=== PATIENT | male | born 1980 | race Caucasian/White ===

== ENCOUNTER 2016-12-08 08:02 | Emergency (ER) | payer MEDICAID ==
[2016-12-08 08:11] VITALS: BP 129/81
--- NOTE | 2016-12-08 09:55 | ED Physician Documentation ---
History of Present Illness - Stated complaint Stated Complaint: MED REFILL - Chief complaint Chief Complaint: General - History obtained from History obtained from: Patient - History of Present Illness Timing: Today - Additonal information Additional information: 36-year-old male with a history of PTSD has a prescription for some clonazepam half milligram 4 times per day. He has been taking this medication for some time and he is recently moved here from [place]. He has a refill due for his medication on the of this month and he plans to have his father male him his medication. He does not have primary care established here as yet. He does indicate that his moved here has been a positive move his living with his mother and things are much better here than in [place]. He does have some chronic pain in his neck shoulder and knee and he is not on pain management. 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 - Past Surgical History Past Surgical History: Yes HEENT: Tonsil/Adenoidectomy - Present Medications Home Medications: Ambulatory Orders Medication Instructions Recorded Confirmed Clonazepam 0.5 mg PO QID 12/08/16 12/08/16 Clonazepam 0.5 mg PO QID PRN #40 tablet 12/08/16 - Allergies Allergies/Adverse Reactions: Allergies Allergy/AdvReac Type Severity Reaction Status Date / Time ibuprofen Allergy Unknown Unknown Verified 12/08/16 08:13 acetaminophen Allergy Unknown Verified 12/08/16 08:12 [From Theraflu Cold-Sore Throat (PE)] Antifungal - Imidazole Allergy Unknown Verified 12/08/16 08:12 divalproex sodium Allergy Unknown Verified 12/08/16 08:12 [From Depakote] gabapentin [From Neurontin] Allergy Unknown Verified 12/08/16 08:12 oseltamivir [From Tamiflu] Allergy Unknown Verified 12/08/16 08:12 oxycodone Allergy Unknown Verified 12/08/16 08:12 Penicillins Allergy Unknown Verified 12/08/16 08:12 pheniramine Allergy Unknown Verified 12/08/16 08:12 [From Theraflu Cold-Sore Throat (PE)] phenylephrine Allergy Unknown Verified 12/08/16 08:12 [From Theraflu Cold-Sore Throat (PE)] - Social History Does the pt smoke?: No Smoking Status: Never smoker Does the pt drink ETOH?: No Does the pt have substance abuse?: No - POLST Patient has POLST: No PD ED PE NORMAL - Vitals Vital signs reviewed: Yes (hypertensive) - General General: No acute distress, Well developed/nourished - HEENT HEENT: Atraumatic, PERRL, Ears normal, Moist mucous membranes, Pharynx benign - Neck Neck: Supple, no meningeal sign - Cardiac Cardiac: RRR, No murmur - Respiratory Respiratory: No respiratory distress, Clear bilaterally - Abdomen Abdomen: Soft, Non tender - Derm Derm: Normal color, Warm and dry, No rash - Extremities Extremities: No deformity, No edema - Neuro Neuro: No motor deficit, No sensory deficit - Psych Psych: Normal mood, Normal affect Results - Vitals Vitals: Vital Signs - 24 hr 12/08/16 08:06 Temperature 36.8 C Heart Rate 68 Respiratory 18 Rate Blood Pressure 129/81 H O2 Saturation 99 Oxygen O2 Source Room air PD MEDICAL DECISION MAKING - ED course Complexity details: considered differential, d/w patient ED course: 36-year-old male needs medication refill for his PTSD. I will refer him to the [facility]. He will need physical therapy for his chronic pain and this was discussed with the patient at length. Departure - Departure Disposition: 01 Home, Self Care Clinical Impression: Medication refill, PTSD (post-traumatic stress disorder) Condition: Stable Instructions: PTSD Tx Therapy, PTSD Coping Follow-Up: [facility] [Provider Group] Prescriptions: Clonazepam 0.5 mg PO QID PRN #40 tablet PRN Reason: Anxiety
== END 2016-12-08 10:13 | disposition home or self-care (01) ==
LOC: ED 08:02
DX: F43.10 Post-traumatic stress disorder, unspecified (principal); Z76.0 Encounter for issue of repeat prescription
CPT/HCPCS: 99282; 99283

== ENCOUNTER 2017-01-21 19:43 | Emergency (ER) | payer MEDICAID ==
[2017-01-21 21:03] VITALS: BP 116/79
--- NOTE | 2017-01-21 21:15 | ED Physician Documentation ---
History of Present Illness - Stated complaint Stated Complaint: ANXIETY/MED REFILL - Chief complaint Chief Complaint: General - History obtained from History obtained from: Patient (pt is new to the area had an appointment with a new primary care provider on Feb 08. he has anxiety and takes Clonazepam 0.5 mg Po TID for his anxiety. pt states that he ran out of his medications and has other medications in a unlabel bottle with pills that he staes he ws told were Clonazepam by his father. he states that those pills did not help him today.) - History of Present Illness Timing: Today Review of Systems Constitutional: denies: Fever, Chills Throat: denies: Sore throat Cardiac: denies: Chest pain / pressure, Palpitations, Calf pain Respiratory: denies: Dyspnea, Cough, Wheezing GI: denies: Abdominal Pain, Nausea, Vomiting, Constipation, Diarrhea : denies: Dysuria Skin: denies: Rash, Lesions Musculoskeletal: denies: Joint swelling Neurologic: denies: Headache, LOC Psychiatric: reports: Anxiety. denies: Suicidal PD PAST MEDICAL HISTORY - Past Medical History Past Medical History: Yes Psych: Anxiety, Panic attacks, Post traumatic stress disorder - Past Surgical History Past Surgical History: Yes HEENT: Tonsil/Adenoidectomy - Present Medications Home Medications: Ambulatory Orders Medication Instructions Recorded Confirmed clonazePAM [Clonazepam] 0.5 mg PO TID 12/08/16 01/21/17 clonazePAM [Clonazepam] 0.5 mg PO TID #54 tablet 01/21/17 - Allergies Allergies/Adverse Reactions: Allergies Allergy/AdvReac Type Severity Reaction Status Date / Time ibuprofen Allergy Unknown Unknown Verified 01/21/17 19:49 acetaminophen Allergy Unknown Verified 01/21/17 19:49 [From Theraflu Cold-Sore Throat (PE)] Antifungal - Imidazole Allergy Unknown Verified 01/21/17 19:49 divalproex sodium Allergy Unknown Verified 01/21/17 19:49 [From Depakote] gabapentin [From Neurontin] Allergy Unknown Verified 01/21/17 19:49 oseltamivir [From Tamiflu] Allergy Unknown Verified 01/21/17 19:49 oxycodone Allergy Unknown Verified 01/21/17 19:49 Penicillins Allergy Unknown Verified 01/21/17 19:49 pheniramine Allergy Unknown Verified 01/21/17 19:49 [From Theraflu Cold-Sore Throat (PE)] phenylephrine Allergy Unknown Verified 01/21/17 19:49 [From Theraflu Cold-Sore Throat (PE)] - Social History Does the pt smoke?: No Smoking Status: Never smoker Does the pt drink ETOH?: No Does the pt have substance abuse?: No - POLST Patient has POLST: No PD ED PE NORMAL - Vitals Vital signs reviewed: Yes - General General: Alert and oriented X 3, Well developed/nourished - Cardiac Cardiac: RRR, No murmur - Respiratory Respiratory: No respiratory distress, Clear bilaterally - Abdomen Abdomen: Soft, Non tender - Derm Derm: Normal color, No rash - Extremities Extremities: Normal ROM s pain - Neuro Neuro: Alert and oriented X 3, No motor deficit, No sensory deficit, Normal speech Eye Opening: Spontaneous Motor: Obeys Commands Verbal: Oriented GCS Score: 15 - Psych Psych: Normal mood, Normal affect Results - Vitals Vitals: Vital Signs - 24 hr 01/21/17 01/21/17 19:45 21:03 Temperature 36.8 C Heart Rate 56 L 56 L Respiratory 16 16 Rate Blood Pressure 129/86 H 116/79 O2 Saturation 100 100 Oxygen O2 Source Room air PD MEDICAL DECISION MAKING - ED course Complexity details: d/w patient ED course: I looked up the pills that the pt had and they are 0.5 mg Clonazepam pills. The pt states that he is concerned that the pills are "not good". the pt asked if I would take his pills and give him another Rx. I received 59 of the pills from him and disposed of them in the medication container with a witness (FELICIA barriga [employer]) and will refill his medication until he can get into his PCM. Departure - Departure Disposition: 01 Home, Self Care Clinical Impression: Anxiety Condition: Good Instructions: ED Stress React Follow-Up: primary,care provider [Other] Prescriptions: clonazePAM [Clonazepam] 0.5 mg PO TID #54 tablet Comments: Take your medications as instructed. Keep your appointment that you have with your primary care provider.
[2017-01-21] MEDS ORDERED: LORazepam 0.5 MG TABLET PO STA (21:30)
[2017-01-21] MEDS ORDERED: LORazepam 0.5 MG TABLET ONE (21:37)
== END 2017-01-21 21:33 | disposition home or self-care (01) ==
LOC: ED 19:43
DX: F41.9 Anxiety disorder, unspecified (principal)
CPT/HCPCS: 99283; A9270

== ENCOUNTER 2017-03-07 11:07 | Emergency (ER) | payer MEDICAID ==
[2017-03-07 11:24] VITALS: BP 114/70
--- NOTE | 2017-03-07 13:28 | ED Physician Documentation ---
History of Present Illness - Stated complaint Stated Complaint: MED REFILL - Chief complaint Chief Complaint: General - History obtained from History obtained from: Patient - History of Present Illness Timing: Today Pain level max: 0 Pain level now: 0 Improved by: nothing Worsened by: nothing - Additonal information Additional information: Patient is a 36-year-old male who presents to the emergency department after running out of his clonazepam. Has a new PCP appointment on April 12 with [facility]. Has not had any seizures. No fevers. No SI. Has been on this medication for years. Review of Systems Skin: denies: Rash Neurologic: denies: Seizure, Confused, Altered mental status PD PAST MEDICAL HISTORY - Past Medical History Past Medical History: Yes Psych: Anxiety, Panic attacks, Post traumatic stress disorder Musculoskeletal: Other Other Past Medical History: AVM, - Past Surgical History Past Surgical History: Yes HEENT: Tonsil/Adenoidectomy - Present Medications Home Medications: Ambulatory Orders Medication Instructions Recorded Confirmed clonazePAM [Clonazepam] 0.5 mg PO TID PRN #90 tablet 02/09/17 03/07/17 clonazePAM [Clonazepam] 0.5 mg PO TID PRN #90 tablet 03/07/17 - Allergies Allergies/Adverse Reactions: Allergies Allergy/AdvReac Type Severity Reaction Status Date / Time ibuprofen Allergy Unknown Unknown Verified 03/07/17 11:25 acetaminophen Allergy Unknown Verified 03/07/17 11:25 [From Theraflu Cold-Sore Throat (PE)] Antifungal - Imidazole Allergy Unknown Verified 03/07/17 11:25 divalproex sodium Allergy Unknown Verified 03/07/17 11:25 [From Depakote] gabapentin [From Neurontin] Allergy Unknown Verified 03/07/17 11:25 oseltamivir [From Tamiflu] Allergy Unknown Verified 03/07/17 11:25 oxycodone Allergy Unknown Verified 03/07/17 11:25 Penicillins Allergy Unknown Verified 03/07/17 11:25 pheniramine Allergy Unknown Verified 03/07/17 11:25 [From Theraflu Cold-Sore Throat (PE)] phenylephrine Allergy Unknown Verified 03/07/17 11:25 [From Theraflu Cold-Sore Throat (PE)] - Social History Does the pt smoke?: No Smoking Status: Never smoker Does the pt drink ETOH?: No Does the pt have substance abuse?: No - Immunizations Immunizations are current?: No - POLST Patient has POLST: No PD ED PE NORMAL - Vitals Vital signs reviewed: Yes - General General: Alert and oriented X 3, No acute distress - HEENT HEENT: Moist mucous membranes - Cardiac Cardiac: RRR - Respiratory Respiratory: No respiratory distress, Clear bilaterally - Abdomen Abdomen: Soft, Non tender, Non distended - Derm Derm: Warm and dry - Neuro Neuro: Alert and oriented X 3 - Psych Psych: Normal mood, Normal affect Results - Vitals Vitals: Vital Signs - 24 hr 03/07/17 11:20 Temperature 37.1 C Heart Rate 75 Respiratory 18 Rate Blood Pressure 114/70 O2 Saturation 98 Oxygen O2 Source Room air PD MEDICAL DECISION MAKING - ED course Complexity details: reviewed old records, considered differential, d/w patient ED course: Patient is a 36-year-old male who presents to the emergency department after running out of his clonazepam. Will refill this for him and told that he needs to make it last until his appointment on April 12. No suicidal or homicidal ideations. Patient counseled regarding signs and symptoms for which I believe and urgent re-evaluation would be necessary. Patient with good understanding of and agreement to plan and is comfortable going home at this time This document was made in part using voice recognition software. While efforts are made to proofread this document, sound alike and grammatical errors may occur. Departure - Departure Disposition: 01 Home, Self Care Clinical Impression: Medication refill, Anxiety Condition: Good Instructions: ED Panic Attack Follow-Up: your,doctor as scheduled. [Other] Prescriptions: clonazePAM [Clonazepam] 0.5 mg PO TID PRN #90 tablet PRN Reason: Anxiety Comments: Follow up with your doctor for further medication refills.
== END 2017-03-07 13:42 | disposition home or self-care (01) ==
LOC: ED 11:07
DX: F41.9 Anxiety disorder, unspecified (principal); Z76.0 Encounter for issue of repeat prescription
CPT/HCPCS: 99283

== ENCOUNTER 2017-03-11 16:35 | Emergency (ER) | payer MEDICAID ==
[2017-03-11 18:16] VITALS: BP 128/94
--- NOTE | 2017-03-11 18:20 | ED Physician Documentation ---
History of Present Illness - Stated complaint Stated Complaint: ALLERGIC REACTION/FAST HR/THROAT SWELLING - Chief complaint Chief Complaint: Allergic Rx - History obtained from History obtained from: Patient, Family - History of Present Illness Timing: Today Pain level max: 0 Pain level now: 0 Improved by: nothing Worsened by: nothing - Additonal information Additional information: Patient is a 36-year-old male who has a history of severe anxiety. Received a flu shot approximately 3 hours ago. About an hour after the flu shot was administered, he went to [facility] and states that he felt like he could not swallow as well as normal. Began to feel panicked. His mother stated that he looked slightly pale. No rash. No itching. He is feeling better now. Review of Systems Constitutional: denies: Fever Nose: denies: Rhinorrhea / runny nose, Congestion Throat: denies: Sore throat Cardiac: denies: Chest pain / pressure Respiratory: denies: Cough, Wheezing Skin: denies: Rash PD PAST MEDICAL HISTORY - Past Medical History Past Medical History: Yes Psych: Anxiety, Panic attacks, Post traumatic stress disorder Musculoskeletal: Other - Past Surgical History Past Surgical History: Yes HEENT: Tonsil/Adenoidectomy - Present Medications Home Medications: Ambulatory Orders Medication Instructions Recorded Confirmed clonazePAM [Clonazepam] 0.5 mg PO TID PRN #90 tablet 02/09/17 03/11/17 clonazePAM [Clonazepam] 0.5 mg PO TID PRN #90 tablet 03/07/17 03/11/17 - Allergies Allergies/Adverse Reactions: Allergies Allergy/AdvReac Type Severity Reaction Status Date / Time ibuprofen Allergy Unknown Unknown Verified 03/07/17 11:25 acetaminophen Allergy Unknown Verified 03/07/17 11:25 [From Theraflu Cold-Sore Throat (PE)] Antifungal - Imidazole Allergy Unknown Verified 03/07/17 11:25 divalproex sodium Allergy Unknown Verified 03/07/17 11:25 [From Depakote] gabapentin [From Neurontin] Allergy Unknown Verified 03/07/17 11:25 oseltamivir [From Tamiflu] Allergy Unknown Verified 03/07/17 11:25 oxycodone Allergy Unknown Verified 03/07/17 11:25 Penicillins Allergy Unknown Verified 03/07/17 11:25 pheniramine Allergy Unknown Verified 03/07/17 11:25 [From Theraflu Cold-Sore Throat (PE)] phenylephrine Allergy Unknown Verified 03/07/17 11:25 [From Theraflu Cold-Sore Throat (PE)] - Social History Does the pt smoke?: No Smoking Status: Never smoker Does the pt drink ETOH?: No Does the pt have substance abuse?: Yes Substance Use and Type: Marijuana - Immunizations Immunizations are current?: No - POLST Patient has POLST: No PD ED PE NORMAL - Vitals Vital signs reviewed: Yes - General General: Alert and oriented X 3, No acute distress, Well developed/nourished - HEENT HEENT: PERRL, Ears normal, Moist mucous membranes, Pharynx benign, Other (No stridor or wheezing) - Neck Neck: Supple, no meningeal sign - Cardiac Cardiac: RRR, Strong equal pulses - Respiratory Respiratory: No respiratory distress, Clear bilaterally - Abdomen Abdomen: Soft, Non tender, Non distended - Derm Derm: Warm and dry, No rash - Neuro Neuro: Alert and oriented X 3 - Psych Psych: Normal mood, Normal affect Results - Vitals Vitals: Vital Signs - 24 hr 03/11/17 03/11/17 16:53 18:15 Temperature 37.1 C 36.7 C Heart Rate 75 72 Respiratory 20 16 Rate Blood Pressure 120/69 128/94 H O2 Saturation 98 94 Oxygen O2 Source Room air PD MEDICAL DECISION MAKING - ED course Complexity details: re-evaluated patient, considered differential, d/w patient, d/w family ED course: Patient is a 36-year-old male who presents to the emergency department with a possible allergic reaction, but more likely a panic attack. He is well- appearing, nontoxic. Afebrile. No stridor. No wheezing. No urticaria. Normal oropharyngeal exam. No trismus. Uvula midline. Symptoms resolved in the emergency department. We will continue supportive care and follow-up with his doctor. Patient counseled regarding signs and symptoms for which I believe and urgent re-evaluation would be necessary. Patient with good understanding of and agreement to plan and is comfortable going home at this time This document was made in part using voice recognition software. While efforts are made to proofread this document, sound alike and grammatical errors may occur. Departure - Departure Disposition: 01 Home, Self Care Clinical Impression: Allergic reaction Qualifiers: Encounter type: initial encounter Qualified Code(s): T78.40XA - Allergy, unspecified, initial encounter Condition: Good Instructions: ED Allergic Reaction General Other Follow-Up: your,doctor in 1 week [Other] Comments: Return if you worsen. This should continue to improve over the next few hours. Discharge Date/Time: 03/11/17 18:55
== END 2017-03-11 18:55 | disposition home or self-care (01) ==
LOC: ED 16:35
DX: T78.40XA Allergy, unspecified, initial encounter (principal); X58.XXXA Exposure to other specified factors, initial encounter
CPT/HCPCS: 99283

== ENCOUNTER 2017-04-08 09:29 | Emergency (ER) | payer MEDICAID ==
[2017-04-08 10:07] VITALS: BP 107/63
--- NOTE | 2017-04-08 11:23 | ED Physician Documentation ---
History of Present Illness - Stated complaint Stated Complaint: MED REFILL - Chief complaint Chief Complaint: General - History obtained from History obtained from: Patient, Family (Mother) - Additonal information Additional information: The patient is a 36-year-old male with a history of anxiety disorder and panic attacks. He normally takes clonazepam 0.5 mg 3 times daily, and presents for refill of his medication because he has only one tablet left. He moved here 4 months ago and has had difficulty establishing care with a primary physician. He currently has an appointment scheduled at [facility] on April 12, next week. Review of his medical records reveals that he was seen here one month ago and was prescribed a 1 month supply of his medication. Review of Systems Ten Systems: 10 systems reviewed and negative Constitutional: denies: Fever Nose: denies: Congestion Respiratory: denies: Cough GI: denies: Nausea, Vomiting Psychiatric: reports: Anxiety (controlled with clonazepam) PD PAST MEDICAL HISTORY - Past Medical History Cardiovascular: None Respiratory: None Neuro: None Endocrine/Autoimmune: None Psych: Anxiety, Panic attacks, Post traumatic stress disorder Musculoskeletal: Other - Past Surgical History Past Surgical History: Yes HEENT: Tonsil/Adenoidectomy - Present Medications Home Medications: Ambulatory Orders Medication Instructions Recorded Confirmed clonazePAM [Clonazepam] 0.5 mg PO TID PRN #90 tablet 03/07/17 03/11/17 clonazePAM [Clonazepam] 0.5 mg PO TID #20 tablet 04/08/17 - Allergies Allergies/Adverse Reactions: Allergies Allergy/AdvReac Type Severity Reaction Status Date / Time ibuprofen Allergy Unknown Unknown Verified 03/07/17 11:25 acetaminophen Allergy Unknown Verified 03/07/17 11:25 [From Theraflu Cold-Sore Throat (PE)] Antifungal - Imidazole Allergy Unknown Verified 03/07/17 11:25 divalproex sodium Allergy Unknown Verified 03/07/17 11:25 [From Depakote] gabapentin [From Neurontin] Allergy Unknown Verified 03/07/17 11:25 hydrocodone Allergy Unknown Verified 04/08/17 10:08 oseltamivir [From Tamiflu] Allergy Unknown Verified 03/07/17 11:25 oxycodone Allergy Unknown Verified 03/07/17 11:25 Penicillins Allergy Unknown Verified 03/07/17 11:25 pheniramine Allergy Unknown Verified 03/07/17 11:25 [From Theraflu Cold-Sore Throat (PE)] phenylephrine Allergy Unknown Verified 03/07/17 11:25 [From Theraflu Cold-Sore Throat (PE)] anelgesics Allergy Anxiety Uncoded 04/08/17 10:08 - Social History Does the pt smoke?: No Smoking Status: Never smoker Does the pt drink ETOH?: No Does the pt have substance abuse?: Yes - Immunizations Immunizations are current?: No - POLST Patient has POLST: No PD ED PE NORMAL - Vitals Vital signs reviewed: Yes (normal) - General General: Alert and oriented X 3, Well developed/nourished - HEENT HEENT: Atraumatic, EOMI - Cardiac Cardiac: RRR - Respiratory Respiratory: No respiratory distress - Derm Derm: No rash - Neuro Neuro: Alert and oriented X 3, No motor deficit, No sensory deficit, Normal speech - Psych Psych: Normal mood, Normal affect Results - Vitals Vitals: Oxygen O2 Source Room air PD MEDICAL DECISION MAKING - ED course Complexity details: reviewed old records, considered differential, d/w patient, d/w family ED course: The patient has a history of anxiety disorder with panic attacks, and presents for refill of his medication. He is currently not having symptoms. He has an appointment scheduled in primary care clinic next week. I will prescribe him a one-week supply of clonazepam. I discussed with him the importance of outpatient follow-up, as well as potentially worrisome signs or symptoms that should prompt reevaluation in the emergency department. Departure - Departure Disposition: 01 Home, Self Care Clinical Impression: Medication refill, Anxiety Condition: Stable Instructions: ED Stress React Follow-Up: [facility] [Provider Group] Prescriptions: clonazePAM [Clonazepam] 0.5 mg PO TID #20 tablet Comments: Follow up at [facility] next week as scheduled. Return to the emergency department if you develop increasing anxiety disorder, or otherwise worsening symptoms. Discharge Date/Time: 04/08/17 11:26
== END 2017-04-08 11:26 | disposition home or self-care (01) ==
LOC: ED 09:29
DX: Z76.0 Encounter for issue of repeat prescription (principal); F41.9 Anxiety disorder, unspecified
CPT/HCPCS: 99283

== ENCOUNTER 2017-04-14 12:47 | Emergency (ER) | payer MEDICAID ==
--- NOTE | 2017-04-14 13:52 | ED Physician Documentation ---
PD HPI MHE - Stated complaint Stated Complaint: MED REFILL - Chief complaint Chief Complaint: General - History obtained from History obtained from: Patient - History of Present Illness Primary symptom: Anxiety. No: Suicidal ideation Timing - onset: Other (chronic anxiety and is about out of meds. Had appt with [facility] couple days ago and they told him they would not give Rx for the Clonazepam regularly. He was not interested in other meds instead as he has tried many in the past without improvement and the Clonazepam works the best for him.) Contributing factors: No: Substance abuse - ETOH, Substance abuse - drugs Recently seen: Clinic (2 days ago), Emergency Dept (has been getting refills for his Clonazepam for about 4 months through ER as he had long wait for appts to PCP clinics. Finally had appt and they will not give him the Rx he is asking for. Here for refill again. Prior notes clearly state the ER refills were intended to act as a bridge until he could get to PCP and then was to continue through primary care.) Review of Systems Constitutional: denies: Fever, Chills Nose: denies: Rhinorrhea / runny nose, Congestion Throat: denies: Sore throat Respiratory: denies: Cough GI: denies: Nausea, Vomiting, Diarrhea Psychiatric: reports: Anxiety, Insomnia. denies: Depressed, Suicidal PD PAST MEDICAL HISTORY - Past Medical History Cardiovascular: None Respiratory: None Neuro: None Endocrine/Autoimmune: None Psych: Anxiety, Panic attacks, Post traumatic stress disorder Musculoskeletal: Other - Past Surgical History Past Surgical History: Yes HEENT: Tonsil/Adenoidectomy - Present Medications Home Medications: Ambulatory Orders Medication Instructions Recorded Confirmed clonazePAM [Clonazepam] 0.5 mg PO TID #20 tablet 04/08/17 clonazePAM [Clonazepam] 0.5 mg PO TID PRN #90 tablet 04/14/17 - Allergies Allergies/Adverse Reactions: Allergies Allergy/AdvReac Type Severity Reaction Status Date / Time ibuprofen Allergy Unknown Unknown Verified 04/14/17 13:05 acetaminophen Allergy Unknown Verified 04/14/17 13:05 [From Theraflu Cold-Sore Throat (PE)] Antifungal - Imidazole Allergy Unknown Verified 04/14/17 13:05 divalproex sodium Allergy Unknown Verified 04/14/17 13:05 [From Depakote] gabapentin [From Neurontin] Allergy Unknown Verified 04/14/17 13:05 hydrocodone Allergy Unknown Verified 04/14/17 13:05 oseltamivir [From Tamiflu] Allergy Unknown Verified 04/14/17 13:05 oxycodone Allergy Unknown Verified 04/14/17 13:05 Penicillins Allergy Unknown Verified 04/14/17 13:05 pheniramine Allergy Unknown Verified 04/14/17 13:05 [From Theraflu Cold-Sore Throat (PE)] phenylephrine Allergy Unknown Verified 04/14/17 13:05 [From Theraflu Cold-Sore Throat (PE)] anelgesics Allergy Anxiety Uncoded 04/14/17 13:05 - Social History Does the pt smoke?: No Smoking Status: Never smoker Does the pt drink ETOH?: No Does the pt have substance abuse?: Yes - Immunizations Immunizations are current?: No - POLST Patient has POLST: No PD ED PE NORMAL - Vitals Vital signs reviewed: Yes - General General: Alert and oriented X 3, No acute distress, Well developed/nourished - Cardiac Cardiac: RRR, No murmur - Respiratory Respiratory: Clear bilaterally - Derm Derm: Normal color, Warm and dry - Neuro Neuro: Alert and oriented X 3, No motor deficit, Normal speech Results - Vitals Vitals: Oxygen O2 Source Room air PD MEDICAL DECISION MAKING - ED course Complexity details: considered differential (he saw [facility] and they do not want to Rx the Clonazepam regularly. He is resistant to other meds for his anxiety as has tried many in the past without imrovement (some were just for a few days and made him feel more anxious so stopped them). I suggested he try psychology services for Rx of his meds and gave referral sheet for [facility] and [facility]. However, if he is not finding PCP Clinic for giving his Rx, and I reinforced with him that the ER scripts were just to bridge until he got to PCP and not to be ongoing refills (has been about 4 months already), then he needs to confront the idea of tapering off and being without benzos. I listed several meds to try for anxiety otherwise, and gave Rx for Trazadone as it sounded like one he had not tried, but then he remembered it had made him sleepy but did not help anxiety so does not want to try that. He is painting himself into a corner of having to be off all Rx meds then. I gave Rx for him, with explicit instructions to be tapering dose and to consider this the beginning of a tapering off over the next month or two. He is going to try appt with [facility].), d/w patient Departure - Departure Disposition: 01 Home, Self Care Clinical Impression: Medication refill, Anxiety Condition: Stable Record reviewed to determine appropriate education?: Yes Instructions: Anxiety Disorder Tx Meds Follow-Up: [facility] [Provider Group] Prescriptions: clonazePAM [Clonazepam] 0.5 mg PO TID PRN #90 tablet PRN Reason: Anxiety Comments: Drink lots of fluids. You could try the [facility] and see if they would give you an appointment. You may try through the psychological services to see if they would prescribe you medications for the anxiety as they often will do those types of medicines, more so than the primary care clinics. A couple in the [place] are [facility] and [facility], see the separate handout for their phone numbers. I hear that this medication has worked the best for you and other medications have not but you still need to be able to find a provider who will prescribe you the clonazepam regularly. We won't continue to do it through the ER (we did as a bridge until getting a primary care but we won't continue refills if a primary care will not be continuing it. You may need to consider tapering down and off of it and substituting other medications. Try tapering down to clonazepam twice daily for the next 2-3 weeks and see if you are able to adjust to that and then taper down to half a dose twice a day from there. You will need to taper somewhat slowly on the clonazepam over several weeks. I understand you have had side effects to many other medications used for anxiety some not sure what else to try to prescribe you. See if you are able to see 1 of the psychologists for other ideas. Discharge Date/Time: 04/14/17 14:11
[2017-04-14 14:08] VITALS: BP 121/72
== END 2017-04-14 14:11 | disposition home or self-care (01) ==
LOC: ED 12:47
DX: Z76.0 Encounter for issue of repeat prescription (principal); F41.9 Anxiety disorder, unspecified
CPT/HCPCS: 99283

== ENCOUNTER 2017-04-24 12:15 | Emergency (ER) | payer MEDICAID ==
[2017-04-24] MEDS ORDERED: TETANUS/DIPHTHERIA/PERTUSSIS 0.5 ML SYRINGE IM ONE (13:33)
--- NOTE | 2017-04-24 13:38 | ED Physician Documentation ---
PD HPI LOWER EXT INJURY - Stated complaint Stated Complaint: DOG BITE - Chief complaint Chief Complaint: Ext Problem - History obtained from History obtained from: Patient - History of Present Illness PD HPI LOW EXT INJURY LOCATION: Right, Foot (Bitten by dog last night to the right foot with pain there but declines pain medication. Tetanus is not up-to- date.) Review of Systems Constitutional: denies: Fever, Chills Throat: reports: Reviewed and negative Cardiac: reports: Reviewed and negative Respiratory: reports: Reviewed and negative PD PAST MEDICAL HISTORY - Past Medical History Past Medical History: Yes Cardiovascular: None Respiratory: None Neuro: None Endocrine/Autoimmune: None Psych: Anxiety, Panic attacks, Post traumatic stress disorder Musculoskeletal: Other - Past Surgical History Past Surgical History: Yes HEENT: Tonsil/Adenoidectomy - Present Medications Home Medications: Ambulatory Orders Medication Instructions Recorded Confirmed clonazePAM [Clonazepam] 0.5 mg PO TID #20 tablet 04/08/17 - Allergies Allergies/Adverse Reactions: Allergies Allergy/AdvReac Type Severity Reaction Status Date / Time ibuprofen Allergy Unknown Unknown Verified 04/24/17 12:36 acetaminophen Allergy Unknown Verified 04/24/17 12:36 [From Theraflu Cold-Sore Throat (PE)] Antifungal - Imidazole Allergy Unknown Verified 04/24/17 12:36 divalproex sodium Allergy Unknown Verified 04/24/17 12:36 [From Depakote] gabapentin [From Neurontin] Allergy Unknown Verified 04/24/17 12:36 hydrocodone Allergy Unknown Verified 04/24/17 12:36 oseltamivir [From Tamiflu] Allergy Unknown Verified 04/24/17 12:36 oxycodone Allergy Unknown Verified 04/24/17 12:36 Penicillins Allergy Unknown Verified 04/24/17 12:36 pheniramine Allergy Unknown Verified 04/24/17 12:36 [From Theraflu Cold-Sore Throat (PE)] phenylephrine Allergy Unknown Verified 04/24/17 12:36 [From Theraflu Cold-Sore Throat (PE)] anelgesics Allergy Anxiety Uncoded 04/24/17 12:36 - Social History Does the pt smoke?: No Smoking Status: Never smoker Does the pt drink ETOH?: No Does the pt have substance abuse?: Yes - Immunizations Immunizations are current?: No - POLST Patient has POLST: No PD ED PE NORMAL - Vitals Vital signs reviewed: Yes - General General: Alert and oriented X 3, No acute distress - Extremities Extremities: Other (V shallow punture near top of R 4th MT, not though skin much mild TTP) - Neuro Neuro: Alert and oriented X 3, Normal speech Results - Vitals Vitals: Vital Signs - 24 hr 04/24/17 04/24/17 12:33 14:15 Temperature 37.7 C H 37.5 C Heart Rate 74 92 Respiratory 16 16 Rate Blood Pressure 122/81 H 151/86 H O2 Saturation 98 98 Oxygen O2 Source Room air - Rads (name of study) 3v R foot Radiology: EMP read contemporaneously (Normal) Departure - Departure Disposition: 01 Home, Self Care Clinical Impression: Dog bite of extremity Condition: Good Record reviewed to determine appropriate education?: Yes Instructions: ED Bite Dog Comments: Come back for any signs of infection which would include: Redness, swelling, drainage, increased pain, or fevers. Your blood pressure was elevated today on check into the emergency department. This does not mean that you have hypertension, it is a common phenomenon to come to the emergency department and have elevated blood pressure. I recommend that you see your primary care physician within the week to have it rechecked when you are feeling better.
--- NOTE | 2017-04-24 14:09 | XRAY Report ---
EXAM: RIGHT FOOT RADIOGRAPHY EXAM DATE: 04/24/2017 01:45 PM. CLINICAL HISTORY: Foot inj, prox 4th MT area. COMPARISON: None. TECHNIQUE: 3 views. FINDINGS: Bones: Accessory navicular. No fracture or bone lesion. Joints: Normal. No subluxations. Soft Tissues: Normal. No soft tissue swelling. IMPRESSION: No acute osseous abnormality. [facility] Referring Provider Line: [phone] SITE ID: [id number]
[2017-04-24 14:16] VITALS: BP 151/86
== END 2017-04-24 14:24 | disposition home or self-care (01) ==
LOC: ED 12:15
DX: S91.351A Open bite, right foot, initial encounter (principal); W54.0XXA Bitten by dog, initial encounter; R03.0 Elevated blood-pressure reading, without diagnosis of hypertension; Z23 Encounter for immunization
CPT/HCPCS: 90471; 99282; 99283

== ENCOUNTER 2017-06-18 17:51 | Emergency (ER) | payer MEDICAID ==
[2017-06-18 18:00] VITALS: BP 139/74
--- NOTE | 2017-06-18 18:26 | ED Physician Documentation ---
History of Present Illness - Stated complaint Stated Complaint: MED REFILL - Chief complaint Chief Complaint: General - History obtained from History obtained from: Patient, Family (mother) - History of Present Illness Timing: Today Pain level max: 0 Pain level now: 0 Improved by: nothing Worsened by: nothing - Additonal information Additional information: out of clonazepam. No meds until tuesday. Requesting medications until then. Denies SI/ HI Review of Systems Constitutional: denies: Fever, Chills Nose: denies: Rhinorrhea / runny nose, Congestion Respiratory: denies: Cough GI: denies: Vomiting Psychiatric: reports: Anxiety. denies: Suicidal, Homicidal, Hallucinations PD PAST MEDICAL HISTORY - Past Medical History Past Medical History: Yes Cardiovascular: None Respiratory: None Neuro: None Endocrine/Autoimmune: None GI: None : None HEENT: None Psych: Anxiety, Panic attacks, Post traumatic stress disorder Musculoskeletal: None, Other Derm: None - Past Surgical History Past Surgical History: Yes HEENT: Tonsil/Adenoidectomy - Present Medications Home Medications: Ambulatory Orders Medication Instructions Recorded Confirmed clonazePAM [Clonazepam] 0.5 mg PO TID #20 tablet 04/08/17 Prazosin [Minipress] 1 cap PO DAILY 06/18/17 06/18/17 clonazePAM [Clonazepam] 0.5 mg PO TID #7 tablet 06/18/17 - Allergies Allergies/Adverse Reactions: Allergies Allergy/AdvReac Type Severity Reaction Status Date / Time ibuprofen Allergy Unknown Unknown Verified 06/18/17 18:01 acetaminophen Allergy Unknown Verified 06/18/17 18:01 [From Theraflu Cold-Sore Throat (PE)] Antifungal - Imidazole Allergy Unknown Verified 06/18/17 18:01 divalproex sodium Allergy Unknown Verified 06/18/17 18:01 [From Depakote] gabapentin [From Neurontin] Allergy Unknown Verified 06/18/17 18:01 hydrocodone Allergy Unknown Verified 06/18/17 18:01 oseltamivir [From Tamiflu] Allergy Unknown Verified 06/18/17 18:01 oxycodone Allergy Unknown Verified 06/18/17 18:01 Penicillins Allergy Unknown Verified 06/18/17 18:01 pheniramine Allergy Unknown Verified 06/18/17 18:01 [From Theraflu Cold-Sore Throat (PE)] phenylephrine Allergy Unknown Verified 06/18/17 18:01 [From Theraflu Cold-Sore Throat (PE)] anelgesics Allergy Anxiety Uncoded 04/24/17 12:36 - Social History Does the pt smoke?: No Smoking Status: Never smoker Does the pt drink ETOH?: No Does the pt have substance abuse?: No - Immunizations Immunizations are current?: Yes - POLST Patient has POLST: No PD ED PE NORMAL - Vitals Vital signs reviewed: Yes - General General: Alert and oriented X 3, No acute distress - HEENT HEENT: Moist mucous membranes - Neck Neck: Supple, no meningeal sign - Cardiac Cardiac: RRR, Strong equal pulses - Respiratory Respiratory: No respiratory distress, Clear bilaterally - Abdomen Abdomen: Soft, Non tender, Non distended - Derm Derm: Warm and dry - Neuro Neuro: Alert and oriented X 3 - Psych Psych: Normal mood, Normal affect Results - Vitals Vitals: Vital Signs - 24 hr 06/18/17 17:55 Temperature 37 C Heart Rate 82 Respiratory 14 Rate Blood Pressure 139/74 H O2 Saturation 98 Oxygen O2 Source Room air PD MEDICAL DECISION MAKING - ED course Complexity details: reviewed results, re-evaluated patient, considered differential, d/w patient ED course: Patient was supposed to have a refill of his medications 2 days ago, but because of pharmacy mixup, the prescription is unable to be available until Tuesday. Will prescribe 7 pills for home and have him follow-up with his doctor. Patient counseled regarding signs and symptoms for which I believe and urgent re-evaluation would be necessary. Patient with good understanding of and agreement to plan and is comfortable going home at this time This document was made in part using voice recognition software. While efforts are made to proofread this document, sound alike and grammatical errors may occur. Departure - Departure Disposition: Home, Self Care Clinical Impression: Medication refill, Anxiety Condition: Good Instructions: ED Stress React Follow-Up: GEORGIANA EASON ARNP [Primary Care Provider] - Within 3 Days Prescriptions: clonazePAM [Clonazepam] 0.5 mg PO TID #7 tablet Comments: Follow up with your doctor for further medication refills. Discharge Date/Time: 06/18/17 18:32
== END 2017-06-18 18:32 | disposition home or self-care (01) ==
LOC: ED 17:51
DX: F41.9 Anxiety disorder, unspecified (principal)
CPT/HCPCS: 99283

== ENCOUNTER 2017-07-19 08:00 | Outpatient (CLI) | payer MEDICAID ==
[2017-07-19 18:58] LABS: BILIRUBIN,URINE NEGATIVE (NEGATIVE); GLUCOSE, URINE (UA) NEGATIVE (NEGATIVE); KETONES,URINE (UA) NEGATIVE (NEGATIVE); LEUKOCYTE ESTERASE, URINE NEGATIVE (NEGATIVE); NITRITE,URINE NEGATIVE (NEGATIVE); OCCULT BLOOD,URINE NEGATIVE (NEGATIVE); PROTEIN,URINE NEGATIVE (NEGATIVE); UROBILINOGEN,URINE 0.2 (NORMAL) E.U./dL (NORMAL)
[2017-07-19 19:18] LABS: CLARITY,URINE CLEAR (CLEAR)
[2017-07-19 19:20] LABS: BACTERIA,URINE None Seen /HPF (None Seen); RBC,URINE 0-5 /HPF (0-5); SQUAMOUS EPITHELIAL CELL,UR NONE SEEN (<= Few)
== END 2017-07-19 08:01 | disposition home or self-care (01) ==
LOC: LAB.WCP 08:00
PROVIDERS: ATTEND Family Medicine
DX: N50.812 Left testicular pain (principal)
CPT/HCPCS: 81001; 87086

== ENCOUNTER 2017-07-19 16:46 | Emergency (ER) | payer MEDICAID ==
[2017-07-19 16:58] VITALS: BP 132/73
--- NOTE | 2017-07-19 18:15 | ED Physician Documentation ---
PD HPI ALTERED MENTAL STATUS - Stated complaint Stated Complaint: MED REACTION - Chief complaint Chief Complaint: Allergic Rx - History obtained from History obtained from: Patient - History of Present Illness Timing - onset: Today Timing - duration: Hours Timing - details: Abrupt onset (onset about 30-60 minutes after taking Levaquin for UTI Dx by PCP. Denies fever, vomiting, headache. Had not taken that med before.) Quality / character: Agitated (felt lightheaded, dizzy, confused and shaky. Symptoms improving coming here but lasted couple of hours.) Associated symptoms: Other (did not have rash nor itching nor feeling of swelling throat/breathing.). No: Fever, Headache, Dyspnea, Cough, NVD Basline status: Alert and oriented X 3, Ambulatory Similar symptoms before: Has not had sx before Recently seen: Not recently seen Review of Systems Constitutional: denies: Fever, Chills Nose: denies: Rhinorrhea / runny nose, Congestion Throat: denies: Sore throat Respiratory: denies: Cough GI: denies: Nausea, Vomiting, Diarrhea : reports: Dysuria Skin: denies: Rash, Lesions Neurologic: reports: Near syncope, Confused, Altered mental status. denies: Focal weakness, Numbness, Headache, Head injury PD PAST MEDICAL HISTORY - Past Medical History Past Medical History: Yes Cardiovascular: None Respiratory: None Endocrine/Autoimmune: None GI: None : None HEENT: None Psych: Anxiety, Panic attacks, Post traumatic stress disorder Musculoskeletal: None, Other Derm: None - Past Surgical History Past Surgical History: Yes HEENT: Tonsil/Adenoidectomy - Present Medications Home Medications: Ambulatory Orders Medication Instructions Recorded Confirmed clonazePAM [Clonazepam] 0.5 mg PO TID #20 tablet 04/08/17 07/19/17 Sulfamethox/Trimeth 800/160 1 each PO BID #14 tablet 07/19/17 [Bactrim Ds 800/160] - Allergies Allergies/Adverse Reactions: Allergies Allergy/AdvReac Type Severity Reaction Status Date / Time ibuprofen Allergy Unknown Unknown Verified 07/19/17 16:59 acetaminophen Allergy Unknown Verified 07/19/17 16:59 [From Theraflu Cold-Sore Throat (PE)] Antifungal - Imidazole Allergy Unknown Verified 07/19/17 16:59 divalproex sodium Allergy Unknown Verified 07/19/17 16:59 [From Depakote] gabapentin [From Neurontin] Allergy Unknown Verified 07/19/17 16:59 hydrocodone Allergy Unknown Verified 07/19/17 16:59 oseltamivir [From Tamiflu] Allergy Unknown Verified 07/19/17 16:59 oxycodone Allergy Unknown Verified 07/19/17 16:59 Penicillins Allergy Unknown Verified 07/19/17 16:59 pheniramine Allergy Unknown Verified 07/19/17 16:59 [From Theraflu Cold-Sore Throat (PE)] phenylephrine Allergy Unknown Verified 06/18/17 18:01 [From Theraflu Cold-Sore Throat (PE)] anelgesics Allergy Anxiety Uncoded 04/24/17 12:36 - Social History Does the pt smoke?: No Smoking Status: Never smoker Does the pt drink ETOH?: No Does the pt have substance abuse?: No - Immunizations Immunizations are current?: Yes - POLST Patient has POLST: No PD ED PE NORMAL - Vitals Vital signs reviewed: Yes - General General: Alert and oriented X 3, No acute distress, Well developed/nourished - HEENT HEENT: Pharynx benign, Other (no swelling of throat nor lips) - Neck Neck: Supple, no meningeal sign, No adenopathy - Cardiac Cardiac: RRR, No murmur - Respiratory Respiratory: Clear bilaterally - Abdomen Abdomen: Soft, Non tender - Derm Derm: Normal color, Warm and dry, No rash - Extremities Extremities: No tenderness to palpate, Normal ROM s pain - Neuro Neuro: Alert and oriented X 3, No motor deficit, Normal speech Eye Opening: Spontaneous Motor: Obeys Commands Verbal: Oriented GCS Score: 15 - Psych Psych: Normal mood, Normal affect Results - Vitals Vitals: Oxygen O2 Source Room air PD MEDICAL DECISION MAKING - ED course Complexity details: considered differential (got symptoms soon after taking Levaquin. Not sure if allergic reaction per se or side effects neurocognitive. Either way, will change abx. ), d/w patient Departure - Departure Disposition: 01 Home, Self Care Clinical Impression: Medication side effects Condition: Stable Record reviewed to determine appropriate education?: Yes Instructions: ED Drug React Allergic Follow-Up: David Hoff MD [Primary Care Provider] - Prescriptions: Sulfamethox/Trimeth 800/160 [Bactrim Ds 800/160] 1 each PO BID #14 tablet Comments: Drink lots of fluids this evening. Stop the levofloxacin antibiotic. If you are feeling better tomorrow then start Bactrim antibiotic twice daily for a week for the urinary tract infection. It would be good to be feeling well before starting it just so you would be able to distinguish if you have side effect to that one. Discharge Date/Time: 07/19/17 18:46
== END 2017-07-19 18:46 | disposition home or self-care (01) ==
LOC: ED 16:46
DX: R42 Dizziness and giddiness (principal); R41.0 Disorientation, unspecified; T37.8X5A Adverse effect of other specified systemic anti-infectives and antiparasitics, initial encounter; N50.812 Left testicular pain
CPT/HCPCS: 81001; 87086; 99283

== ENCOUNTER 2017-07-21 16:05 | Emergency (ER) | payer MEDICAID ==
--- NOTE | 2017-07-21 17:58 | ED Physician Documentation ---
PD HPI HEENT - Stated complaint Stated Complaint: MED REACTION/TROUBLE BREATHING - Chief complaint Chief Complaint: Allergic Rx - History obtained from History obtained from: Patient - History of Present Illness Timing - onset: Today Timing - duration: Minutes Timing - details: Abrupt onset (he took dose of abx and felt onset of throat tightening and trouble breathing. No rash, itching, nor lightheadedness. No swelling of lips nor tongue.), Now resolved Location: Throat Worsens: Swalllowing Associated symptoms: No: Fever, Swollen nodes Similar symptoms before: No diagnosis (had similar response to prior antibiotic levaquin. No problems with Bactrim for couple of doses, but symptoms after taking it this afternoon.) Recently seen: Emergency Dept Review of Systems Constitutional: denies: Fever Nose: denies: Rhinorrhea / runny nose, Congestion Throat: denies: Sore throat Respiratory: denies: Cough GI: denies: Nausea, Vomiting, Diarrhea Skin: denies: Rash Neurologic: reports: Confused. denies: Altered mental status (feels lightheaded ), LOC PD PAST MEDICAL HISTORY - Past Medical History Past Medical History: Yes Cardiovascular: None Respiratory: None Endocrine/Autoimmune: None GI: None : None HEENT: None Psych: Anxiety, Panic attacks, Post traumatic stress disorder Musculoskeletal: None, Other Derm: None - Past Surgical History Past Surgical History: Yes HEENT: Tonsil/Adenoidectomy - Present Medications Home Medications: Ambulatory Orders Medication Instructions Recorded Confirmed clonazePAM [Clonazepam] 0.5 mg PO TID #20 tablet 04/08/17 07/19/17 Sulfamethox/Trimeth 800/160 1 each PO BID #14 tablet 07/19/17 [Bactrim Ds 800/160] - Allergies Allergies/Adverse Reactions: Allergies Allergy/AdvReac Type Severity Reaction Status Date / Time sulfamethoxazole Allergy Intermediate Dizziness Verified 07/21/17 16:31 [From Bactrim] trimethoprim [From Bactrim] Allergy Intermediate Dizziness Verified 07/21/17 16: 31 ibuprofen Allergy Unknown Unknown Verified 07/19/17 16:59 Antifungal - Imidazole Allergy Unknown Verified 07/19/17 16:59 divalproex sodium Allergy Unknown Verified 07/19/17 16:59 [From Depakote] gabapentin [From Neurontin] Allergy Unknown Verified 07/19/17 16:59 hydrocodone Allergy Unknown Verified 07/19/17 16:59 oseltamivir [From Tamiflu] Allergy Unknown Verified 07/19/17 16:59 oxycodone Allergy Unknown Verified 07/19/17 16:59 Penicillins Allergy Unknown Verified 07/19/17 16:59 pheniramine Allergy Unknown Verified 07/19/17 16:59 [From Theraflu Cold-Sore Throat (PE)] phenylephrine Allergy Unknown Verified 06/18/17 18:01 [From Theraflu Cold-Sore Throat (PE)] anelgesics Allergy Anxiety Uncoded 04/24/17 12:36 - Social History Does the pt smoke?: No Smoking Status: Never smoker Does the pt drink ETOH?: No Does the pt have substance abuse?: No - Immunizations Immunizations are current?: Yes - POLST Patient has POLST: No PD ED PE NORMAL - Vitals Vital signs reviewed: Yes - General General: Alert and oriented X 3, No acute distress (a little anxious), Well developed/nourished - HEENT HEENT: Pharynx benign, Other (no edema of tongue, uvula, throat. ) - Neck Neck: Supple, no meningeal sign, No adenopathy - Cardiac Cardiac: RRR, No murmur - Respiratory Respiratory: Clear bilaterally - Abdomen Abdomen: Soft, Non tender - Derm Derm: Normal color, Warm and dry, No rash - Neuro Neuro: Alert and oriented X 3, No motor deficit, Normal speech Results - Vitals Vitals: Vital Signs - 24 hr 07/21/17 07/21/17 16:20 19:18 Temperature 37.2 C 36.4 C L Heart Rate 99 63 Respiratory 16 16 Rate Blood Pressure 143/111 H 121/77 O2 Saturation 100 98 Oxygen O2 Source Room air - Labs Labs: Laboratory Tests 07/21/17 18:53 Urine Color YELLOW Urine Clarity CLEAR Urine pH 7.0 Ur Specific [place] 1.020 Urine Protein NEGATIVE Urine Glucose (UA) NEGATIVE Urine Ketones TRACE Urine Occult Blood NEGATIVE Urine Nitrite NEGATIVE Urine Bilirubin NEGATIVE Urine Urobilinogen 1 (NORMAL) Ur Leukocyte Esterase NEGATIVE Ur Microscopic Review NOT INDICATED Urine Culture Comments NOT INDICATED PD MEDICAL DECISION MAKING - ED course Complexity details: considered differential (likely a good amount of anxiety. Could be med reaction. Appears okay here. Has been on abx for UTI for 3 days and has normal UA now, so can just stop abx. ), d/w patient Departure - Departure Disposition: 01 Home, Self Care Clinical Impression: Medication side effect Condition: Stable Record reviewed to determine appropriate education?: Yes Instructions: ED Drug React Allergic Follow-Up: David Hoff MD [Primary Care Provider] - Comments: Your urine looks clear here. You could have been on the antibiotics long enough to have actually cleared the infection so I would just stop the antibiotics at this point. Follow-up with your primary care as planned. Drink lots of fluids. Continue your other usual medicines. Discharge Date/Time: 07/21/17 19:21
[2017-07-21] MEDS ORDERED: LORazepam 0.5 MG TABLET PO STA (18:16)
[2017-07-21 19:06] LABS: BILIRUBIN,URINE NEGATIVE (NEGATIVE); GLUCOSE, URINE (UA) NEGATIVE (NEGATIVE); KETONES,URINE (UA) TRACE mg/dL (NEGATIVE); LEUKOCYTE ESTERASE, URINE NEGATIVE (NEGATIVE); NITRITE,URINE NEGATIVE (NEGATIVE); OCCULT BLOOD,URINE NEGATIVE (NEGATIVE); PROTEIN,URINE NEGATIVE (NEGATIVE); UROBILINOGEN,URINE 1 (NORMAL) E.U./dL (NORMAL)
[2017-07-21 19:07] LABS: CLARITY,URINE CLEAR (CLEAR)
[2017-07-21 19:19] VITALS: BP 121/77
== END 2017-07-21 19:21 | disposition home or self-care (01) ==
LOC: ED 16:05
DX: R06.00 Dyspnea, unspecified (principal); T50.905A Adverse effect of unspecified drugs, medicaments and biological substances, initial encounter
CPT/HCPCS: 81003; 93005; 99282; 99283; A9270; 81001; 87086

== ENCOUNTER 2017-08-02 08:00 | Outpatient (CLI) | payer MEDICAID | END 2017-08-02 08:01 | disposition home or self-care (01) | LOC: LAB.WCP 08:00 | PROVIDERS: ATTEND Family Medicine | DX: R30.0 Dysuria (principal) | CPT/HCPCS: 87086 ==

== ENCOUNTER 2017-08-06 08:50 | Outpatient (CLI) | payer MEDICAID ==
[~2017-08-06 08:50] MED LIST: IOPAMIDOL-300 100 ML VIAL ONE
[2017-08-06] MEDS ORDERED: IOPAMIDOL-300 100 ML VIAL IVP ONE (09:02)
== END 2017-08-06 08:51 | disposition home or self-care (01) ==
LOC: DI 08:50
PROVIDERS: ATTEND Family Medicine
DX: Z53.9 Procedure and treatment not carried out, unspecified reason (principal)

== ENCOUNTER 2017-08-13 08:20 | Outpatient (CLI) | payer MEDICAID ==
--- NOTE | 2017-08-14 20:10 | Ultrasound Report ---
Procedure Date: 08/13/2017 Accession Number: [id number] / [id number] Procedure: US - Testicle CPT Code: FULL RESULT: EXAM: SCROTAL ULTRASOUND. EXAM DATE: 08/13/2017 05:01 PM. CLINICAL HISTORY: Left testicular pain. COMPARISON: None. TECHNIQUE: Real-time scanning was performed with static images obtained. Both color-flow and Doppler spectral analysis were utilized. FINDINGS: Right: Testis: 4.8 x 1.9 x 2.5 cm. Normal size and echotexture. No mass, calcification, or abnormal blood flow. Epididymis: 3.6 x 0.6 x 1 cm. Normal size and echotexture. No mass or abnormal blood flow. Hydrocele: None. Varicocele: None. Left: Testis: 4.8 x 1.6 x 2.5 cm. There is focal calcification in the anterior mid-lower portion, 2 x 1 x 2 mm; otherwise, normal size and echotexture. No mass, calcification, or abnormal blood flow. Epididymis: 2.7 x 0.5 x 1.4 cm. Normal size and echotexture. No mass or abnormal blood flow. Hydrocele: Tiny amount. Varicocele: None. IMPRESSION: 1. Single tiny size calcification without soft tissue nodule, mass or abnormal Doppler flow in the left testicle; minimal amount of left hydrocele also noted; findings are nonspecific finding, most likely nonacute benign process. 2. Otherwise, unremarkable scrotal ultrasound. RADIA
== END 2017-08-13 08:21 | disposition home or self-care (01) ==
LOC: DI 08:20
PROVIDERS: ATTEND Family Medicine
DX: N50.89 Other specified disorders of the male genital organs (principal); N43.3 Hydrocele, unspecified
CPT/HCPCS: 76870

== ENCOUNTER 2017-08-24 08:57 | Outpatient (CLI) | payer MEDICAID ==
[~2017-08-24 08:57] MED LIST changes: +GADOBUTROL 10 MMOL/10 ML VIAL ONE; -IOPAMIDOL-300 100 ML VIAL ONE
--- NOTE | 2017-08-25 03:33 | MRI Report ---
Procedure Date: 08/24/2017 Accession Number: [id number] / [id number] Procedure: MRI - Brain W/O CPT Code: FULL RESULT: EXAM: MRI BRAIN WITHOUT CONTRAST EXAM DATE: 08/24/2017 09:47 AM. CLINICAL HISTORY: Reported history of right hemiparesis and congenital arteriovenous malformation. COMPARISON: None. TECHNIQUE: Multiplanar, multisequence T1-weighted and fluid-sensitive MR sequences of the brain were performed. Sequences optimized for routine evaluation. Other: None. IV Contrast: No contrast administered, the patient declined to be administered IV gadolinium contrast for this brain MRI study. FINDINGS: In the deep white matter of the upper right frontal lobe, there is an ovoid demarcated mixed signal brain nodule measuring about 7 x 10 mm transverse with associated susceptibility artifact suggesting the presence of hemosiderin staining from old blood products. No associated acute brain edema. There are a few nodular and curvilinear foci of adjacent T2 hyperintense signal and adjacent to this in the right superior frontal sulcus there for at least 2 separate enlarged vascular flow voids, essentially vertically oriented that extends superiorly and may drain into the adjacent superior sagittal sinus. Normal brain volume for age. No evidence for acute ischemic infarct. No other evidence for hemorrhage. No midline shift or hydrocephalus. No abnormal subdural collection. No acute appearing sinus or mastoid disease. The major arterial skull base flow voids are present. Nonspecific soft tissue fullness in the nasopharynx is present measuring up to 1.7 cm AP in the midline that may represent adenoid hypertrophy. IMPRESSION: 1. Mixed signal nodular lesion with hemosiderin staining and susceptibility artifact in the right frontal white matter. This is consistent with a lesion associated with prior hemorrhage. A cavernous malformation may be considered. Hemorrhage and/or calcification associated with a high flow vascular malformation may also be considered. 2. Enlarged blood vessels are present adjacent to the frontal lobe white matter lesion, these are consistent with a vascular malformation, a high flow vascular AVM with dilated draining veins may give this appearance. Atypical developmental venous anomaly might also be considered. A definitive diagnosis might be offered by catheter DSA. 3. No definite MRI evidence for an acute intracranial abnormality. 4. Soft tissue fullness in the nasopharynx is present, this may represent adenoid hypertrophy. RADIA
== END 2017-08-24 08:58 | disposition home or self-care (01) ==
LOC: DI 08:57
PROVIDERS: ATTEND Family Medicine
DX: Q28.2 Arteriovenous malformation of cerebral vessels (principal); G93.9 Disorder of brain, unspecified
CPT/HCPCS: 70551; 70553

== ENCOUNTER 2017-09-12 14:33 | Emergency (ER) | payer MEDICAID ==
[2017-09-12] MEDS ORDERED: DEXAMETHASONE 10 MG/ML VIAL PO STA (16:31)
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
[2017-09-12] MEDS ORDERED: CHERRY SYRUP 10 ML UDC PO ONE (16:49)
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
[2017-09-12 17:24] VITALS: BP 125/96
== END 2017-09-12 17:31 | disposition home or self-care (01) ==
LOC: ED 14:33
DX: S29.012A Strain of muscle and tendon of back wall of thorax, initial encounter (principal); M41.34 Thoracogenic scoliosis, thoracic region; V18.0XXA Pedal cycle driver injured in noncollision transport accident in nontraffic accident, initial encounter; Y92.830 Public park as the place of occurrence of the external cause
CPT/HCPCS: 72070; 99283; A9270

== ENCOUNTER 2017-09-18 17:21 | Emergency (ER) | payer MEDICAID ==
--- NOTE | 2017-09-18 18:02 | ED Physician Documentation ---
PD HPI CHEST PAIN - Stated complaint Stated Complaint: IRREGULAR HEARTBEAT - Chief complaint Chief Complaint: Cardiac - History obtained from History obtained from: Patient - History of Present Illness Timing - onset: Today (he has had some palpitations recently the past few days but felt them very frequent today. No lightheadedness, dyspnea, nor chest pain.) Timing - onset during: Light activity (he had been bicycling/exercising and noted the palpitations when resting afterward. No chest pain nor dyspnea when exercising.) Timing - duration: Other (just feels the surge and pause of the heartbeats but having several per minute.) Timing - details: Gradual onset, Waxing and waning Quality: Other (palpitation feeling.). No: Pressure, Tightness, Aching Location: Substernal Radiation: No: Jaw, Neck Improved by: Other (breathing regularly and trying to relax.) Worsened by: No: Inspiration, Eating, Movement Associated symptoms: Palpitations. No: Shortness of air, Diaphoresis, Nausea, Vomiting, Feeling faint / dizzy Similar symptoms before: Diagnosis (has had palpitations in the past. Says he had Holter few years ago for it and just PACs. Had been smoking lot of cannabis the past week due to neck strain muscle injury. He stopped the cannabis a few days ago. Feeling somewhat anxious. He is exercising a lot the past few days but does feel he is hydrating okay.) Review of Systems Constitutional: denies: Fever, Chills Nose: denies: Rhinorrhea / runny nose, Congestion Throat: denies: Sore throat Cardiac: reports: Palpitations. denies: Chest pain / pressure, Pedal edema, Calf pain Respiratory: denies: Dyspnea, Cough, Wheezing GI: denies: Nausea, Vomiting, Diarrhea Musculoskeletal: denies: Extremity swelling Neurologic: denies: Focal weakness, Numbness, Near syncope, Altered mental status PD PAST MEDICAL HISTORY - Past Medical History Cardiovascular: None Respiratory: None Neuro: None Endocrine/Autoimmune: None GI: None : None HEENT: None Psych: Anxiety, Panic attacks, Post traumatic stress disorder Musculoskeletal: None, Other Derm: None - Past Surgical History Past Surgical History: Yes HEENT: Tonsil/Adenoidectomy - Present Medications Home Medications: Ambulatory Orders Medication Instructions Recorded Confirmed clonazePAM [Clonazepam] 0.5 mg PO TID #20 tablet 04/08/17 07/19/17 Cyclobenzaprine [Flexeril] 10 mg PO TID PRN #20 tablet 09/12/17 - Allergies Allergies/Adverse Reactions: Allergies Allergy/AdvReac Type Severity Reaction Status Date / Time sulfamethoxazole Allergy Intermediate Dizziness Verified 09/18/17 17:36 [From Bactrim] trimethoprim [From Bactrim] Allergy Intermediate Dizziness Verified 09/18/17 17: 36 ibuprofen Allergy Unknown Unknown Verified 09/18/17 17:36 Antifungal - Imidazole Allergy Unknown Verified 09/18/17 17:36 divalproex sodium Allergy Unknown Verified 09/18/17 17:36 [From Depakote] gabapentin [From Neurontin] Allergy Unknown Verified 09/18/17 17:36 hydrocodone Allergy Unknown Verified 09/18/17 17:36 oseltamivir [From Tamiflu] Allergy Unknown Verified 09/18/17 17:36 oxycodone Allergy Unknown Verified 09/18/17 17:36 Penicillins Allergy Unknown Verified 09/18/17 17:36 pheniramine Allergy Unknown Verified 09/12/17 14:51 [From Theraflu Cold-Sore Throat (PE)] phenylephrine Allergy Unknown Verified 09/12/17 14:51 [From Theraflu Cold-Sore Throat (PE)] anelgesics Allergy Anxiety Uncoded 04/24/17 12:36 - Social History Does the pt smoke?: No Smoking Status: Never smoker Does the pt drink ETOH?: No Does the pt have substance abuse?: No Substance Use and Type: Marijuana - Immunizations Immunizations are current?: Yes - POLST Patient has POLST: No PD ED PE NORMAL - Vitals Vital signs reviewed: Yes - General General: Alert and oriented X 3, Well developed/nourished, Other (anxious) - HEENT HEENT: Ears normal, Moist mucous membranes, Pharynx benign - Neck Neck: Supple, no meningeal sign, No adenopathy, Thyroid normal - Cardiac Cardiac: RRR, No murmur - Respiratory Respiratory: Clear bilaterally - Abdomen Abdomen: Soft, Non tender - Derm Derm: Normal color, Warm and dry - Extremities Extremities: No tenderness to palpate, Normal ROM s pain, No edema, No calf tenderness / cord - Neuro Neuro: Alert and oriented X 3, No motor deficit, Normal speech Results - Vitals Vitals: Vital Signs - 24 hr 09/18/17 09/18/17 09/18/17 17:32 19:16 20:13 Temperature 37 C Heart Rate 80 64 67 Respiratory 20 18 18 Rate Blood Pressure 124/90 H 121/79 120/71 O2 Saturation 99 99 99 Oxygen O2 Source Room air - EKG (time done) 17:38 Rate: Rate (enter#) (83) Rhythm: NSR [place]: Normal Intervals: Normal [place] QRS: Normal Ischemia: Normal ST segments, ST elevation c/w repol (mild). No: ST elevation c /w ischemia, ST depression, T wave inversion - Labs Labs: Laboratory Tests 09/18/17 09/18/17 18:44 18:44 Sodium 137 Potassium 3.7 Chloride 104 Carbon Dioxide 24 Anion Gap 9.0 BUN 16 Creatinine 0.9 Estimated GFR (MDRD) 96 Glucose 95 Calcium 9.5 Magnesium 2.3 Total Bilirubin 0.5 AST 24 ALT 30 Alkaline Phosphatase 51 Total Creatine Kinase 272 H Troponin I < 0.04 Total Protein 7.4 Albumin 4.5 Globulin 2.9 Albumin/Globulin Ratio 1.6 Lipase 28 PD MEDICAL DECISION MAKING - ED course Complexity details: considered differential (sounds like palpitations (PACS or PVCs) by history. None here. Also anxiety overlay. ), d/w patient - Sepsis Event Vital Signs: Vital Signs - 24 hr 09/18/17 09/18/17 09/18/17 17:32 19:16 20:13 Temperature 37 C Heart Rate 80 64 67 Respiratory 20 18 18 Rate Blood Pressure 124/90 H 121/79 120/71 O2 Saturation 99 99 99 Oxygen O2 Source Room air Departure - Departure Disposition: 01 Home, Self Care Clinical Impression: Heart palpitations Condition: Stable Record reviewed to determine appropriate education?: Yes Instructions: ED Palpitations Comments: Your EKG and blood tests appear normal here. No signs of heart injury or heart attack and your electrolytes are good. Drink lots of fluids. Moderation and exercise over the next several days. Continue avoiding the cannabis. The frequency of the palpitations should decrease and fade away over the next few days. Discharge Date/Time: 09/18/17 20:14
[2017-09-18] MEDS ORDERED: LORazepam 0.5 MG TABLET PO STA (18:32)
[2017-09-18 19:06] LABS: ALBUMIN 4.5 g/dL (3.2-5.5); ALBUMIN/GLOBULIN RATIO 1.6 (1.0-2.2); BILIRUBIN,TOTAL 0.5 mg/dL (0.2-1.0); CALCIUM 9.5 mg/dL (8.5-10.3); CREATININE 0.9 mg/dL (0.6-1.2); MAGNESIUM 2.3 mg/dL (1.7-2.8); TOTAL PROTEIN 7.4 g/dL (6.7-8.2)
[2017-09-18 20:14] VITALS: BP 120/71
== END 2017-09-18 20:14 | disposition home or self-care (01) ==
LOC: ED 17:21
DX: R00.2 Palpitations (principal)
CPT/HCPCS: 36415; 80053; 82550; 83690; 83735; 84484; 93005; 99283; 99284; A9270

== ENCOUNTER 2017-10-30 09:45 | Outpatient (CLI) | payer MEDICAID | END 2017-10-30 09:46 | disposition critical access hospital (66) | LOC: EMS 09:45 | PROVIDERS: ATTEND Surgery | DX: M25.511 Pain in right shoulder (principal); M25.551 Pain in right hip; V18.3XXA Person boarding or alighting a pedal cycle injured in noncollision transport accident, initial encounter; Y93.55 Activity, bike riding; Y92.481 Parking lot as the place of occurrence of the external cause | CPT/HCPCS: A0425; A0427; A0999 ==

== ENCOUNTER 2017-10-30 10:00 | Emergency (ER) | payer MEDICAID ==
[2017-10-30] MEDS ORDERED: IOPAMIDOL-300 100 ML VIAL ONE (10:10)
[2017-10-30 10:27] LABS: BASOPHILS # (AUTO) 0.1 10^3/uL (0.0-0.1); BASOPHILS % (AUTO) 0.9 %; EOSINOPHILS # (AUTO) 0.1 10^3/uL (0.0-0.7); EOSINOPHILS % (AUTO) 1.7 %; HGB - HEMOGLOBIN 14.3 g/dL (14.0-18.0); LYMPHOCYTES # (AUTO) 2.2 10^3/uL (1.5-3.5); LYMPHOCYTES % (AUTO) 35.4 %; MEAN CORPUSCULAR HEMOGLOBIN 29.4 pg (27.0-31.0); MEAN CORPUSCULAR HGB CONC 33.8 g/dL (32.0-36.0); MEAN CORPUSCULAR VOLUME 87.1 fL (80.0-94.0); MEAN PLATELET VOLUME 6.4 fL (7.4-11.4); MONOCYTES # (AUTO) 0.4 10^3/uL (0.0-1.0); NEUTROPHILS # (AUTO) 3.6 10^3/uL (1.5-6.6); PLT - PLATELET COUNT 318 10^3/uL (130-450); RED BLOOD COUNT 4.85 10^6/uL (4.70-6.10); RED CELL DISTRIBUTION WIDTH 15.2 % (12.0-15.0); WHITE BLOOD COUNT 6.4 x10^3/uL (4.8-10.8)
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
[2017-10-30] MEDS ORDERED: KETOROLAC 60 MG/2 ML VIAL IVP STA ×2 (10:30→13:42)
[2017-10-30 10:39] LABS: ALBUMIN 4.3 g/dL (3.2-5.5); ALBUMIN/GLOBULIN RATIO 1.5 (1.0-2.2); BILIRUBIN,TOTAL 0.7 mg/dL (0.2-1.0); CALCIUM 9.2 mg/dL (8.5-10.3); CREATININE 0.9 mg/dL (0.6-1.2); TOTAL PROTEIN 7.1 g/dL (6.7-8.2)
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
[2017-10-30 14:24] VITALS: BP 109/53
== END 2017-10-30 14:24 | disposition home or self-care (01) ==
LOC: EDUNIT# → ED 10:00 → SUPCPDRO 10:00 → ED 14:24
DX: S42.024A Nondisplaced fracture of shaft of right clavicle, initial encounter for closed fracture (principal); S70.01XA Contusion of right hip, initial encounter; S30.1XXA Contusion of abdominal wall, initial encounter; S06.0X1A Concussion with loss of consciousness of 30 minutes or less, initial encounter; F17.200 Nicotine dependence, unspecified, uncomplicated; V18.0XXA Pedal cycle driver injured in noncollision transport accident in nontraffic accident, initial encounter; Y93.55 Activity, bike riding
CPT/HCPCS: 36415; 70450; 71250; 72125; 80053; 83690; 85025; 96374; 96376; 99284

== ENCOUNTER 2017-11-08 09:54 | Outpatient (CLI) | payer MEDICAID | END 2017-11-08 09:55 | LOC: EMS 09:54 | PROVIDERS: ATTEND Surgery | DX: F41.9 Anxiety disorder, unspecified (principal) | CPT/HCPCS: A0425; A0429 ==

== ENCOUNTER 2017-11-08 10:14 | Emergency (ER) | payer MEDICAID ==
--- NOTE | 2017-11-08 11:44 | ED Physician Documentation ---
PD HPI MHE - Stated complaint Stated Complaint: ANXIETY - Chief complaint Chief Complaint: General - History obtained from History obtained from: Patient - History of Present Illness Primary symptom: Anxiety, Out of meds (he says he did not get the Rx from the pharmacy, but pharmacy says someone picked up the Rx for the patient. The patient has history of anxiety but not really drug seeking.) Timing - onset: How many days ago (he tried to get Rx yesterday but pharmacy said it was already picked up. He called [facility], who will not give refill.) Contributing factors: Out of meds (he ran out today, with last dose yesterday.) Review of Systems Constitutional: denies: Fever, Chills Nose: denies: Rhinorrhea / runny nose, Congestion Throat: denies: Sore throat Respiratory: denies: Cough GI: denies: Abdominal Pain, Nausea, Vomiting, Diarrhea Psychiatric: reports: Depressed, Anxiety. denies: Suicidal, Homicidal PD PAST MEDICAL HISTORY - Past Medical History Cardiovascular: None Respiratory: None Neuro: None Endocrine/Autoimmune: None GI: None : None HEENT: None Psych: Anxiety, Panic attacks, Post traumatic stress disorder Musculoskeletal: None, Other Derm: None - Past Surgical History Past Surgical History: Yes HEENT: Tonsil/Adenoidectomy - Present Medications Home Medications: Ambulatory Orders Medication Instructions Recorded Confirmed clonazePAM [Clonazepam] 0.5 mg PO TID #20 tablet 04/08/17 07/19/17 Ketorolac [Toradol] 10 mg PO Q6H PRN #20 tablet 10/30/17 Cyclobenzaprine [Flexeril] 5 mg 11/08/17 clonazePAM [Clonazepam] 0.5 mg PO TID #50 tablet 11/08/17 - Allergies Allergies/Adverse Reactions: Allergies Allergy/AdvReac Type Severity Reaction Status Date / Time sulfamethoxazole Allergy Intermediate Dizziness Verified 11/08/17 10:28 [From Bactrim] trimethoprim [From Bactrim] Allergy Intermediate Dizziness Verified 11/08/17 10:28 ibuprofen Allergy Unknown Unknown Verified 11/08/17 10:28 Antifungal - Imidazole Allergy Unknown Verified 11/08/17 10:28 divalproex sodium Allergy Unknown Verified 11/08/17 10:28 [From Depakote] gabapentin [From Neurontin] Allergy Unknown Verified 11/08/17 10:28 hydrocodone Allergy Unknown Verified 11/08/17 10:28 oseltamivir [From Tamiflu] Allergy Unknown Verified 11/08/17 10:28 oxycodone Allergy Unknown Verified 11/08/17 10:28 Penicillins Allergy Unknown Verified 11/08/17 10:28 pheniramine Allergy Unknown Verified 11/08/17 10:28 [From Theraflu Cold-Sore Throat (PE)] phenylephrine Allergy Unknown Verified 11/08/17 10:28 [From Theraflu Cold-Sore Throat (PE)] anelgesics Allergy Anxiety Uncoded 10/30/17 10:32 - Social History Does the pt smoke?: No Smoking Status: Never smoker Does the pt drink ETOH?: No Does the pt have substance abuse?: No - Immunizations Immunizations are current?: Yes - POLST Patient has POLST: No PD ED PE NORMAL - Vitals Vital signs reviewed: Yes - General General: Alert and oriented X 3 - Neck Neck: Supple, no meningeal sign, No adenopathy - Cardiac Cardiac: RRR, No murmur - Respiratory Respiratory: Clear bilaterally - Neuro Neuro: Alert and oriented X 3, No motor deficit, Normal speech - Psych Psych: Normal mood. No: Normal affect (mildly anxious) Results - Vitals Vitals: Vital Signs - 24 hr 11/08/17 11/08/17 10:14 12:34 Temperature 36.3 C L 37.0 C Heart Rate 67 77 Respiratory 16 15 Rate Blood Pressure 137/81 H 137/80 H O2 Saturation 100 100 Oxygen O2 Source Room air PD MEDICAL DECISION MAKING - ED course Complexity details: reviewed old records, d/w patient - Sepsis Event Vital Signs: Vital Signs - 24 hr 11/08/17 11/08/17 10:14 12:34 Temperature 36.3 C L 37.0 C Heart Rate 67 77 Respiratory 16 15 Rate Blood Pressure 137/81 H 137/80 H O2 Saturation 100 100 Oxygen O2 Source Room air Departure - Departure Disposition: 01 Home, Self Care Clinical Impression: Anxiety Condition: Stable Record reviewed to determine appropriate education?: Yes Follow-Up: David Hoff MD [Primary Care Provider] - [facility] [Provider Group] Prescriptions: clonazePAM [Clonazepam] 0.5 mg PO TID #50 tablet Comments: Continue usual medications. Follow-up with your primary care on the as planned. Drink lots of fluids. Discharge Date/Time: 11/08/17 12:34
[2017-11-08 12:36] VITALS: BP 137/80
== END 2017-11-08 12:34 | disposition home or self-care (01) ==
LOC: ED 10:14
DX: F41.9 Anxiety disorder, unspecified (principal); Z91.138 Patient's unintentional underdosing of medication regimen for other reason; T50.996A Underdosing of other drugs, medicaments and biological substances, initial encounter
CPT/HCPCS: 99283

== ENCOUNTER 2017-12-14 07:40 | Emergency (ER) | payer MEDICAID ==
[2017-12-14 07:46] VITALS: BP 137/83
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
== END 2017-12-14 08:40 | disposition home or self-care (01) ==
LOC: ED 07:40
DX: F43.10 Post-traumatic stress disorder, unspecified (principal); F41.9 Anxiety disorder, unspecified
CPT/HCPCS: 99283

== ENCOUNTER 2018-01-02 16:04 | Outpatient (CLI) | payer MEDICAID | END 2018-01-02 16:05 | disposition critical access hospital (66) | LOC: EMS 16:04 | PROVIDERS: ATTEND Surgery | DX: M54.9 Dorsalgia, unspecified (principal); N50.819 Testicular pain, unspecified | CPT/HCPCS: A0425; A0429; A0999 ==

== ENCOUNTER 2018-01-02 16:28 | Emergency (ER) | payer MEDICAID ==
[2018-01-02] MEDS ORDERED: CYCLOBENZAPRINE 10 MG TABLET PO STA (17:23)
--- NOTE | 2018-01-02 17:29 | ED Physician Documentation ---
History of Present Illness - Stated complaint Stated Complaint: BACK PX - Chief complaint Chief Complaint: Back Pain - History obtained from History obtained from: Patient - History of Present Illness Timing: Today Pain level max: 5 Pain level now: 2 Improved by: rest Worsened by: movement - Additonal information Additional information: Patient is a 37-year-old male who states that he started working out more regularly and felt back pain today. This lasted for a few hours and has now mostly resolved. No numbness or tingling. No loss of bowel or bladder control. Has not taken anything for the pain. States he was scared because it was hard to take a deep breath when he had the pain. No fevers. No IV drug use. Review of Systems Constitutional: denies: Fever, Chills GI: denies: Vomiting Skin: denies: Rash Musculoskeletal: denies: Neck pain Neurologic: denies: Focal weakness, Numbness PD PAST MEDICAL HISTORY - Past Medical History Cardiovascular: None Respiratory: None Neuro: None Endocrine/Autoimmune: None GI: None : None HEENT: None Psych: Anxiety, Panic attacks, Post traumatic stress disorder Musculoskeletal: None, Other Derm: None - Past Surgical History Past Surgical History: Yes HEENT: Tonsil/Adenoidectomy - Present Medications Home Medications: Ambulatory Orders Medication Instructions Recorded Confirmed clonazePAM [Clonazepam] 0.5 mg PO TID #20 tablet 04/08/17 07/19/17 Ketorolac [Toradol] 10 mg PO Q6H PRN #20 tablet 10/30/17 Cyclobenzaprine [Flexeril] 5 mg 11/08/17 clonazePAM [Clonazepam] 0.5 mg PO TID #50 tablet 11/08/17 clonazePAM [Clonazepam] 0.5 mg PO TID #24 tablet 12/14/17 Cyclobenzaprine [Flexeril] 10 mg PO TID PRN #4 tablet 01/02/18 - Allergies Allergies/Adverse Reactions: Allergies Allergy/AdvReac Type Severity Reaction Status Date / Time sulfamethoxazole Allergy Intermediate Dizziness Verified 01/02/18 16:37 [From Bactrim] trimethoprim [From Bactrim] Allergy Intermediate Dizziness Verified 01/02/18 16:37 ibuprofen Allergy Unknown Unknown Verified 01/02/18 16:37 Antifungal - Imidazole Allergy Unknown Verified 01/02/18 16:37 divalproex sodium Allergy Unknown Verified 01/02/18 16:37 [From Depakote] gabapentin [From Neurontin] Allergy Unknown Verified 01/02/18 16:37 hydrocodone Allergy Unknown Verified 01/02/18 16:37 oseltamivir [From Tamiflu] Allergy Unknown Verified 01/02/18 16:37 oxycodone Allergy Unknown Verified 01/02/18 16:37 Penicillins Allergy Unknown Verified 01/02/18 16:37 pheniramine Allergy Unknown Verified 01/02/18 16:37 [From Theraflu Cold-Sore Throat (PE)] phenylephrine Allergy Unknown Verified 01/02/18 16:37 [From Theraflu Cold-Sore Throat (PE)] anelgesics Allergy Anxiety Uncoded 01/02/18 16:37 - Social History Does the pt smoke?: No Smoking Status: Never smoker Does the pt drink ETOH?: No Does the pt have substance abuse?: Yes Substance Use and Type: Marijuana - Immunizations Immunizations are current?: Yes - POLST Patient has POLST: No PD ED PE NORMAL - Vitals Vital signs reviewed: Yes (T37.1) - General General: Alert and oriented X 3, No acute distress - HEENT HEENT: Moist mucous membranes - Neck Neck: Supple, no meningeal sign, No bony TTP - Cardiac Cardiac: RRR, Strong equal pulses - Respiratory Respiratory: No respiratory distress, Clear bilaterally - Abdomen Abdomen: Soft, Non tender, Non distended - Back Back: No spinal TTP (No midline tenderness to palpation or percussion. No step- off or deformity. Normal examination) - Derm Derm: Warm and dry - Extremities Extremities: Other (Normal bilateral lower extremity patellar and ankle jerk reflexes. Normal great toe extension bilaterally. no saddle anesthesia) - Neuro Neuro: Alert and oriented X 3, No motor deficit, No sensory deficit - Psych Psych: Normal mood, Normal affect Results - Vitals Vitals: Vital Signs - 24 hr 01/02/18 01/02/18 16:29 17:46 Heart Rate 105 H 87 Respiratory 20 20 Rate Blood Pressure 131/86 H 128/91 H O2 Saturation 98 99 Oxygen O2 Source Room air PD MEDICAL DECISION MAKING - ED course Complexity details: considered differential (No cauda equina, no spinal epidural abscess, no fracture, no aortic dissection or evidence of aneursym rupture), d/w patient ED course: Patient is a 37-year-old male who has back pain today. Has had issues with his back in the past that resolved with Flexeril. We will give him 4 pills and have him follow-up with his doctor. No evidence of cauda equina, epidural abscess. Denies any testicular pain or complaints to me contrary to triage note. Ambulating without difficulty. No neurological deficits. Patient counseled regarding signs and symptoms for which I believe and urgent re-evaluation would be necessary. Patient with good understanding of and agreement to plan and is comfortable going home at this time This document was made in part using voice recognition software. While efforts are made to proofread this document, sound alike and grammatical errors may occur. Departure - Departure Disposition: 01 Home, Self Care Clinical Impression: Back strain Qualifiers: Encounter type: initial encounter Qualified Code(s): S39.012A - Strain of muscle, fascia and tendon of lower back, initial encounter Condition: Good Instructions: ED Back Care Tips Follow-Up: David Hoff MD [Primary Care Provider] - Prescriptions: Cyclobenzaprine [Flexeril] 10 mg PO TID PRN #4 tablet PRN Reason: Spasms Comments: You can use the Flexeril as needed for back spasms. Return if you worsen. Discharge Date/Time: 01/02/18 17:48
[2018-01-02 17:48] VITALS: BP 128/91
== END 2018-01-02 17:48 | disposition home or self-care (01) ==
LOC: EDUNIT# → ED 16:28
DX: S39.012A Strain of muscle, fascia and tendon of lower back, initial encounter (principal); X50.0XXA Overexertion from strenuous movement or load, initial encounter; Y93.79 Activity, other specified sports and athletics
CPT/HCPCS: 99283; A9270

== ENCOUNTER 2018-02-09 14:40 | Emergency (ER) | payer MEDICAID ==
--- NOTE | 2018-02-09 14:59 | ED Physician Documentation ---
History of Present Illness - Stated complaint Stated Complaint: PANIC/ANXIETY ATTACK - Chief complaint Chief Complaint: MHE - History obtained from History obtained from: Patient - History of Present Illness Timing: Other (This is a 37-year-old gentleman with history of anxiety and right-sided AVM monitored conservatively with multiple complaints. He says that he broke his collarbone about 3-4 months ago and feels like a month ago reinjured and has severe pain there but declines pain medication and initial evaluation. He also felt like last night he had Smith ringing in his head and was having some odd visual auras which are gone now and this made him very anxious about his AVM.) Review of Systems Constitutional: denies: Fever, Chills Cardiac: denies: Chest pain / pressure, Palpitations Respiratory: denies: Dyspnea, Cough GI: denies: Abdominal Pain, Nausea, Vomiting, Diarrhea PD PAST MEDICAL HISTORY - Past Medical History Cardiovascular: None Respiratory: None Neuro: None Endocrine/Autoimmune: None GI: None : None HEENT: None Psych: Anxiety, Panic attacks, Post traumatic stress disorder Musculoskeletal: None, Other Derm: None - Past Surgical History Past Surgical History: Yes HEENT: Tonsil/Adenoidectomy - Present Medications Home Medications: Ambulatory Orders Medication Instructions Recorded Confirmed clonazePAM [Clonazepam] 0.5 mg PO TID #24 tablet 12/14/17 Cyclobenzaprine [Flexeril] 10 mg PO TID PRN #4 tablet 01/02/18 - Allergies Allergies/Adverse Reactions: Allergies Allergy/AdvReac Type Severity Reaction Status Date / Time sulfamethoxazole Allergy Intermediate Dizziness Verified 02/09/18 14:46 [From Bactrim] trimethoprim [From Bactrim] Allergy Intermediate Dizziness Verified 02/09/18 14:46 ibuprofen Allergy Unknown Unknown Verified 02/09/18 14:46 Antifungal - Imidazole Allergy Unknown Verified 02/09/18 14:46 divalproex sodium Allergy Unknown Verified 02/09/18 14:46 [From Depakote] gabapentin [From Neurontin] Allergy Unknown Verified 02/09/18 14:46 hydrocodone Allergy Unknown Verified 02/09/18 14:46 oseltamivir [From Tamiflu] Allergy Unknown Verified 02/09/18 14:46 oxycodone Allergy Unknown Verified 02/09/18 14:46 Penicillins Allergy Unknown Verified 02/09/18 14:46 pheniramine Allergy Unknown Verified 01/02/18 16:37 [From Theraflu Cold-Sore Throat (PE)] phenylephrine Allergy Unknown Verified 01/02/18 16:37 [From Theraflu Cold-Sore Throat (PE)] anelgesics Allergy Anxiety Uncoded 01/02/18 16:37 - Social History Does the pt smoke?: No Smoking Status: Never smoker Does the pt drink ETOH?: No Does the pt have substance abuse?: Yes - Immunizations Immunizations are current?: Yes - POLST Patient has POLST: No PD ED PE NORMAL - Vitals Vital signs reviewed: Yes - General General: Alert and oriented X 3, Other (Anxious, twitchy) - HEENT HEENT: PERRL, EOMI, Ears normal, Pharynx benign - Neck Neck: Supple, no meningeal sign, No bony TTP - Cardiac Cardiac: RRR, No murmur - Respiratory Respiratory: No respiratory distress, Clear bilaterally - Abdomen Abdomen: Non tender - Extremities Extremities: Other (Tenderness to mid and distal right clavicle without deformity or significantly limited range of motion.) - Neuro Neuro: Alert and oriented X 3, Normal speech Eye Opening: Spontaneous Motor: Obeys Commands Verbal: Oriented GCS Score: 15 - Psych Psych: Normal mood, Normal affect Results - Vitals Vitals: Vital Signs - 24 hr 02/09/18 14:43 Temperature 37.3 C Heart Rate 103 H Respiratory 24 Rate Blood Pressure 133/97 H O2 Saturation 100 Oxygen O2 Source Room air - Rads (name of study) CT Head Radiology: EMP read contemporaneously (no chg) R clavicle 2v Radiology: EMP read contemporaneously (Nonunited distal right clavicle fracture without evidence of acute injury.) PD MEDICAL DECISION MAKING - ED course ED course: 37-year-old gentleman with multiple complaints, the first and foremost of which is anxiety which she declined specific treatment for and felt better with just time in the emergency department. He had specific concerns about the worsening or rupture of his AVM and negative. Noting contrast allergy. Note made that he has a clavicular fracture with chronic nonunion and orthopedic referral was advised. Departure - Departure Disposition: 01 Home, Self Care Clinical Impression: Anxiety Nonunion of clavicle fracture Qualifiers: Clavicle location: lateral end Fracture type: closed Fracture alignment: displaced Laterality: right Qualified Code(s): S42.031K - Displaced fracture of lateral end of right clavicle, subsequent encounter for fracture with nonunion Headache Qualifiers: Headache type: unspecified Headache chronicity pattern: acute headache Intractability: not intractable Qualified Code(s): R51 - Headache Condition: Good Record reviewed to determine appropriate education?: Yes Follow-Up: [facility] [Provider Group] - Within 1 week Comments: Follow-up with the orthopedic surgeons regarding the nonunion of her clavicle fracture. I suspect they will not recommend surgery but go talk to them about it. Also talk with your primary care physician about referral to a local neurosurgeon for surveillance of your AVM. Your blood pressure was elevated today on check into the emergency department. This does not mean that you have hypertension, it is a common phenomenon to come to the emergency department and have elevated blood pressure. I recommend that you see your primary care physician within the week to have it rechecked when you are feeling better.
[2018-02-09] MEDS ORDERED: ACETAMINOPHEN 325 MG TABLET PO STA (15:32)
--- NOTE | 2018-02-09 15:37 | CT Report ---
Reason: buzzing in head, known R AVM Procedure Date: 02/09/2018 Accession Number: [id number] / [id number] Procedure: CT - Head W/O CPT Code: FULL RESULT: EXAM: CT HEAD EXAM DATE: 02/09/2018 03:20 PM. CLINICAL HISTORY: Buzzing in head, known right AVM. COMPARISON: HEAD W/O 10/30/2017 10:30 AM BRAIN W/WO 08/24/2017 9:07 AM. TECHNIQUE: Multiaxial CT images were obtained from the foramen magnum to the vertex. Reformats: Sagittal and coronal. IV contrast: None. In accordance with CT protocol optimization, one or more of the following dose reduction techniques were utilized for this exam: automated exposure control, adjustment of mA and/or KV based on patient size, or use of iterative reconstructive technique. FINDINGS: Parenchyma: Again seen is hyperdensity in the right frontal distribution which corresponds to the site of the known vascular malformation. The appearance of this is very similar to 10/30/2017. No other evidence of intraparenchymal hemorrhage. No evidence of mass, midline shift, or CT findings of infarction. Holliday-white differentiation is distinct. Extraaxial Spaces: Normal for age. No subdural or epidural collections identified. Ventricles: Normal in size and position. Sinuses and Orbits: Imaged paranasal sinuses, orbits, and mastoids show no significant abnormality. Bones: No evidence of fracture or calvarial defect. Other: None. IMPRESSION: Essentially unchanged appearance of the right frontal hyperdensity, site of known vascular malformation. Otherwise no acute intracranial abnormality is detected. RADIA
--- NOTE | 2018-02-09 15:55 | XRAY Report ---
Reason: clavicle reinjury Procedure Date: 02/09/2018 Accession Number: [id number] / [id number] Procedure: XR - Clavicle RT CPT Code: FULL RESULT: EXAM: RIGHT CLAVICLE RADIOGRAPHY EXAM DATE: 02/09/2018 03:30 PM. CLINICAL HISTORY: Clavicle reinjury. COMPARISON: CLAVICLE RT 11/25/2017 9:28 AM. TECHNIQUE: 2 views. FINDINGS: Bones: Redemonstration of the known distal clavicle fracture with interval cortication of the distal fragment and no evidence of osseous union. Joints: The acromioclavicular joint appears mildly widened. No subluxation is identified. Soft Tissues: Normal. No soft tissue swelling. IMPRESSION: Nonunited distal right clavicle fracture. RADIA
[2018-02-09 16:14] VITALS: BP 118/82
== END 2018-02-09 16:14 | disposition home or self-care (01) ==
LOC: ED 14:40
DX: F41.9 Anxiety disorder, unspecified (principal); S42.031A Displaced fracture of lateral end of right clavicle, initial encounter for closed fracture; Q28.2 Arteriovenous malformation of cerebral vessels; X58.XXXA Exposure to other specified factors, initial encounter
CPT/HCPCS: 70450; 73000; 99283; A9270

== ENCOUNTER 2018-02-27 08:53 | Emergency (ER) | payer MEDICAID ==
[2018-02-27 09:04] VITALS: BP 134/91
--- NOTE | 2018-02-27 10:01 | ED Physician Documentation ---
History of Present Illness - Stated complaint Stated Complaint: ANXIETY - Chief complaint Chief Complaint: General - History obtained from History obtained from: Patient - History of Present Illness Timing: Prior to arrival Pain level max: 0 Pain level now: 0 - Additonal information Additional information: 37-year-old male with history of PTSD since childhood, anxiety and panic attacks here with request for medication refill of his clonazepam 0.5 mg 3 times a day because the last pill was taken yesterday. He stated he called his primary doctor but does not want him to be on clonazepam any longer. Patient denies any suicidal ideation, homicidal shins or hallucinations. Patient denies any recent trauma, travel or illness. Review of Systems Ten Systems: 10 systems reviewed and negative Constitutional: denies: Fever, Myalgias Cardiac: denies: Chest pain / pressure Respiratory: denies: Dyspnea GI: denies: Abdominal Pain Musculoskeletal: denies: Back pain Psychiatric: reports: Anxiety. denies: Depressed, Suicidal, Homicidal, Hallucinations, Delusions, Insomnia PD PAST MEDICAL HISTORY - Past Medical History Past Medical History: Yes Cardiovascular: None Respiratory: None Neuro: None Endocrine/Autoimmune: None GI: None : None HEENT: None Psych: Anxiety, Panic attacks, Post traumatic stress disorder Musculoskeletal: None, Other Derm: None - Past Surgical History Past Surgical History: Yes HEENT: Tonsil/Adenoidectomy - Present Medications Home Medications: Ambulatory Orders Medication Instructions Recorded Confirmed clonazePAM [Clonazepam] 0.5 mg PO TID #24 tablet 12/14/17 02/27/18 clonazePAM [Clonazepam] 0.5 mg PO Q8H PRN #12 tablet 02/27/18 - Allergies Allergies/Adverse Reactions: Allergies Allergy/AdvReac Type Severity Reaction Status Date / Time sulfamethoxazole Allergy Intermediate Dizziness Verified 02/09/18 14:46 [From Bactrim] trimethoprim [From Bactrim] Allergy Intermediate Dizziness Verified 02/09/18 14:46 ibuprofen Allergy Unknown Unknown Verified 02/09/18 14:46 Antifungal - Imidazole Allergy Unknown Verified 02/09/18 14:46 divalproex sodium Allergy Unknown Verified 02/09/18 14:46 [From Depakote] gabapentin [From Neurontin] Allergy Unknown Verified 02/09/18 14:46 hydrocodone Allergy Unknown Verified 02/09/18 14:46 oseltamivir [From Tamiflu] Allergy Unknown Verified 02/09/18 14:46 oxycodone Allergy Unknown Verified 02/09/18 14:46 Penicillins Allergy Unknown Verified 02/09/18 14:46 pheniramine Allergy Unknown Verified 01/02/18 16:37 [From Theraflu Cold-Sore Throat (PE)] phenylephrine Allergy Unknown Verified 01/02/18 16:37 [From Theraflu Cold-Sore Throat (PE)] anelgesics Allergy Anxiety Uncoded 01/02/18 16:37 - Social History Does the pt smoke?: No Smoking Status: Never smoker Does the pt drink ETOH?: No Does the pt have substance abuse?: Yes - Immunizations Immunizations are current?: Yes - POLST Patient has POLST: No PD ED PE NORMAL - Vitals Vital signs reviewed: Yes - General General: Alert and oriented X 3, No acute distress, Well developed/nourished - HEENT HEENT: Moist mucous membranes, Pharynx benign - Neck Neck: Supple, no meningeal sign - Cardiac Cardiac: RRR, No murmur - Respiratory Respiratory: Clear bilaterally - Abdomen Abdomen: Normal bowel sounds, Soft, Non tender, Non distended - Derm Derm: Warm and dry - Extremities Extremities: No deformity - Neuro Neuro: Alert and oriented X 3 - Psych Psych: Normal mood, Normal affect Results - Vitals Vitals: Vital Signs - 24 hr 02/27/18 09:00 Temperature 36.6 C Heart Rate 77 Respiratory 18 Rate Blood Pressure 134/91 H O2 Saturation 100 Oxygen O2 Source Room air PD MEDICAL DECISION MAKING - ED course Complexity details: considered differential (Med refill, anxiety, panic attacks), d/w patient ED course: Patient is asking for medication refill of his clonazepam. Informed him I could help him for a couple of days but he needs to follow-up with his primary doctor to get this medication refill. Also discussed how he is treating his anxiety because apparently he does not go to mental health counseling. Strongly encouraged him that it may help to have some emotional support or social work instructor mental health counseling. I offered him to speak to our social work instructor but he says he just wants to take the prescription and go home. But he plans to follow-up with the primary doctor for his medication refills and may be get an outpatient mental health referral.Patient denies any homicidal or suicidal Departure - Departure Disposition: Home, Self Care Clinical Impression: Medication refill, Anxiety Condition: Stable Instructions: ED Stress React, ED Panic Attack Prescriptions: clonazePAM [Clonazepam] 0.5 mg PO Q8H PRN #12 tablet PRN Reason: Anxiety Comments: You have to call your primary doctor for medication refills and reevaluation. Consider getting a referral for mental health counseling on a regular basis. If worse return to the emergency room. Discharge Date/Time: 02/27/18 10:20
== END 2018-02-27 10:20 | disposition home or self-care (01) ==
LOC: ED 08:53
DX: F41.9 Anxiety disorder, unspecified (principal); F43.10 Post-traumatic stress disorder, unspecified; Z76.0 Encounter for issue of repeat prescription
CPT/HCPCS: 99283

== ENCOUNTER 2018-03-28 17:03 | Emergency (ER) | payer MEDICAID ==
[2018-03-28 17:09] VITALS: BP 130/77
--- NOTE | 2018-03-28 17:40 | ED Physician Documentation ---
History of Present Illness - Stated complaint Stated Complaint: MED REFILL - Chief complaint Chief Complaint: General - History obtained from History obtained from: Patient - History of Present Illness Timing: Today - Additonal information Additional information: 37-year-old male with a lifelong history of anxiety has been using clonazepam half milligrams 3 times daily for more than 5 years. His current prescriber does not want to prescribe this for him anymore and he has had some issues with withdrawal. He does have a new prescriber that he will be seen only on April 10 and he has been in counseling. He has not found relief as yet with a counseling and he has been doing this for about 3 months. Review of Systems Constitutional: denies: Fever, Chills, Fatigue Eyes: denies: Decreased vision Ears: denies: Ear pain Nose: denies: Congestion Respiratory: denies: Cough GI: denies: Vomiting : denies: Dysuria Musculoskeletal: denies: Neck pain, Back pain, Extremity pain Neurologic: denies: Generalized weakness, Focal weakness, Numbness Psychiatric: reports: Anxiety. denies: Suicidal PD PAST MEDICAL HISTORY - Past Medical History Cardiovascular: None Respiratory: None Neuro: None Endocrine/Autoimmune: None GI: None : None HEENT: None Psych: Anxiety, Panic attacks, Post traumatic stress disorder Musculoskeletal: None, Other Derm: None - Past Surgical History Past Surgical History: Yes HEENT: Tonsil/Adenoidectomy - Present Medications Home Medications: Ambulatory Orders Medication Instructions Recorded Confirmed clonazePAM [Clonazepam] 0.5 mg PO TID #24 tablet 12/14/17 03/28/18 clonazePAM [Clonazepam] 0.5 mg PO TID #30 tablet 03/28/18 - Allergies Allergies/Adverse Reactions: Allergies Allergy/AdvReac Type Severity Reaction Status Date / Time sulfamethoxazole Allergy Intermediate Dizziness Verified 03/28/18 17:10 [From Bactrim] trimethoprim [From Bactrim] Allergy Intermediate Dizziness Verified 03/28/18 17:10 ibuprofen Allergy Unknown Unknown Verified 03/28/18 17:10 Antifungal - Imidazole Allergy Unknown Verified 03/28/18 17:10 divalproex sodium Allergy Unknown Verified 03/28/18 17:10 [From Depakote] gabapentin [From Neurontin] Allergy Unknown Verified 03/28/18 17:10 hydrocodone Allergy Unknown Verified 03/28/18 17:10 oseltamivir [From Tamiflu] Allergy Unknown Verified 03/28/18 17:10 oxycodone Allergy Unknown Verified 03/28/18 17:10 Penicillins Allergy Unknown Verified 03/28/18 17:10 pheniramine Allergy Unknown Verified 01/02/18 16:37 [From Theraflu Cold-Sore Throat (PE)] phenylephrine Allergy Unknown Verified 01/02/18 16:37 [From Theraflu Cold-Sore Throat (PE)] anelgesics Allergy Anxiety Uncoded 01/02/18 16:37 - Social History Does the pt smoke?: No Smoking Status: Never smoker Does the pt drink ETOH?: No Does the pt have substance abuse?: Yes - Immunizations Immunizations are current?: Yes - POLST Patient has POLST: No PD ED PE NORMAL - Vitals Vital signs reviewed: Yes (normal) - General General: Alert and oriented X 3, No acute distress, Well developed/nourished - HEENT HEENT: Atraumatic, PERRL, EOMI - Respiratory Respiratory: No respiratory distress - Derm Derm: Normal color, Warm and dry, No rash - Extremities Extremities: No deformity, No edema - Neuro Neuro: Alert and oriented X 3, 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, No motor deficit, No sensory deficit, Normal speech Eye Opening: Spontaneous Motor: Obeys Commands Verbal: Oriented GCS Score: 15 - Psych Psych: Normal mood, Normal affect Results - Vitals Vitals: Vital Signs - 24 hr 03/28/18 17:05 Temperature 36.5 C Heart Rate 77 Respiratory 16 Rate Blood Pressure 130/77 O2 Saturation 99 Oxygen O2 Source Room air PD MEDICAL DECISION MAKING - ED course Complexity details: considered differential, d/w patient ED course: 37-year-old male with chronic anxiety and benzodiazepine dependence has had little improvement with counseling in the 3 months he has been doing it and I have indicated the patient the mainstay of his treatment should be counseling and that will likely take much longer than 1-2 years. Departure - Departure Disposition: 01 Home, Self Care Clinical Impression: PTSD (post-traumatic stress disorder), Anxiety, Medication refill Condition: Stable Instructions: ED Stress React, BENZODIAZEPINES, General Follow-Up: Your, new doctor [Other] Prescriptions: clonazePAM [Clonazepam] 0.5 mg PO TID #30 tablet
== END 2018-03-28 18:05 | disposition home or self-care (01) ==
LOC: ED 17:03
DX: F43.10 Post-traumatic stress disorder, unspecified (principal); F41.9 Anxiety disorder, unspecified; F13.20 Sedative, hypnotic or anxiolytic dependence, uncomplicated; Z76.0 Encounter for issue of repeat prescription
CPT/HCPCS: 99282; 99283

== ENCOUNTER 2018-04-29 09:57 | Emergency (ER) | payer MEDICAID ==
[2018-04-29 10:07] VITALS: BP 126/79
--- NOTE | 2018-04-29 10:19 | ED Physician Documentation ---
PD HPI MHE - Stated complaint Stated Complaint: MED REFILL - Chief complaint Chief Complaint: General - History obtained from History obtained from: Patient - History of Present Illness Primary symptom: Anxiety (he is out of his Clonazepam and PCP does not want to refill it (new provider for him). Referred to Psych facilities but is still to make appt and get appt. Here for refill abain) Contributing factors: Out of meds Similar symptoms before: Diagnosis (anxiety and PTSD.) Review of Systems Constitutional: denies: Fever, Myalgias Nose: denies: Rhinorrhea / runny nose, Congestion Throat: denies: Sore throat Respiratory: denies: Cough GI: denies: Vomiting, Diarrhea Skin: denies: Rash, Lesions PD PAST MEDICAL HISTORY - Past Medical History Cardiovascular: None Respiratory: None Neuro: None Endocrine/Autoimmune: None GI: None : None HEENT: None Psych: Anxiety, Panic attacks, Post traumatic stress disorder Musculoskeletal: None, Other Derm: None - Past Surgical History Past Surgical History: Yes HEENT: Tonsil/Adenoidectomy - Present Medications Home Medications: Ambulatory Orders Medication Instructions Recorded Confirmed clonazePAM [Clonazepam] 0.5 mg PO TID #24 tablet 12/14/17 03/28/18 clonazePAM [Clonazepam] 0.5 mg PO TID #30 tablet 03/28/18 04/29/18 clonazePAM [Clonazepam] 0.5 mg PO BID #60 tablet 04/29/18 - Allergies Allergies/Adverse Reactions: Allergies Allergy/AdvReac Type Severity Reaction Status Date / Time sulfamethoxazole Allergy Intermediate Dizziness Verified 04/29/18 10:09 [From Bactrim] trimethoprim [From Bactrim] Allergy Intermediate Dizziness Verified 04/29/18 10:09 ibuprofen Allergy Unknown Unknown Verified 04/29/18 10:09 Antifungal - Imidazole Allergy Unknown Verified 04/29/18 10:09 divalproex sodium Allergy Unknown Verified 04/29/18 10:09 [From Depakote] gabapentin [From Neurontin] Allergy Unknown Verified 04/29/18 10:09 hydrocodone Allergy Unknown Verified 04/29/18 10:09 oseltamivir [From Tamiflu] Allergy Unknown Verified 04/29/18 10:09 oxycodone Allergy Unknown Verified 04/29/18 10:09 Penicillins Allergy Unknown Verified 04/29/18 10:09 pheniramine Allergy Unknown Verified 01/02/18 16:37 [From Theraflu Cold-Sore Throat (PE)] phenylephrine Allergy Unknown Verified 01/02/18 16:37 [From Theraflu Cold-Sore Throat (PE)] anelgesics Allergy Anxiety Uncoded 01/02/18 16:37 - Social History Does the pt smoke?: No Smoking Status: Never smoker Does the pt drink ETOH?: No Does the pt have substance abuse?: Yes - Immunizations Immunizations are current?: Yes - POLST Patient has POLST: No PD ED PE NORMAL - Vitals Vital signs reviewed: Yes - General General: Alert and oriented X 3, No acute distress, Well developed/nourished - HEENT HEENT: Pharynx benign - Neck Neck: Supple, no meningeal sign, No adenopathy - Cardiac Cardiac: RRR, No murmur - Respiratory Respiratory: Clear bilaterally - Abdomen Abdomen: Soft, Non tender Results - Vitals Vitals: Vital Signs - 24 hr 04/29/18 10:05 Temperature 36.7 C Heart Rate 76 Respiratory 14 Rate Blood Pressure 126/79 O2 Saturation 100 Oxygen O2 Source Room air PD MEDICAL DECISION MAKING - ED course Complexity details: considered differential (he says his PMD does not want to refill benzo and defers to psych. He has not contacted psych programs. I told him about refill policy and will not be refilling the benzo again, but can get MSE with any visit.), d/w patient Departure - Departure Disposition: 01 Home, Self Care Clinical Impression: Anxiety, PTSD (post-traumatic stress disorder) Condition: Stable Record reviewed to determine appropriate education?: Yes Follow-Up: CRISTIANA LEMA DO [Primary Care Provider] - Prescriptions: clonazePAM [Clonazepam] 0.5 mg PO BID #60 tablet Comments: See if you are able to have a lesser dose of the clonazepam and only twice a day instead of 3 times a day. Combine it with your other medications. [place] 1 [place]. It may be that these providers do not want to continue your clonazepam and that would be their choice. We will not refill your clonazepam here in the ER anymore but will certainly be happy to see you at any time to assess for any other medical problems but will not provide just medication refills for the clonazepam. Discharge Date/Time: 04/29/18 10:51
[2018-04-29] MEDS ORDERED: clonazePAM 0.5 MG TABLET PO STA (10:33)
== END 2018-04-29 10:51 | disposition home or self-care (01) ==
LOC: ED 09:57
DX: F41.9 Anxiety disorder, unspecified (principal); F43.10 Post-traumatic stress disorder, unspecified
CPT/HCPCS: 99283; A9270

== ENCOUNTER 2018-05-18 19:02 | Emergency (ER) | payer MEDICAID ==
[2018-05-18 19:22] VITALS: BP 129/85
[2018-05-18] MEDS ORDERED: LORazepam 0.5 MG TABLET PO STA (22:00)
--- NOTE | 2018-05-18 22:02 | ED Physician Documentation ---
History of Present Illness - Stated complaint Stated Complaint: MED REFILL - Chief complaint Chief Complaint: General - Additonal information Additional information: 37-year-old male presents the emergency department requesting a refill of his benzodiazepine. The patient has no other acute complaints. The patient also wants a refill of Flexeril. Review of Systems Constitutional: denies: Fever Eyes: denies: Discharge Ears: denies: Ear pain Cardiac: denies: Chest pain / pressure Respiratory: denies: Cough Psychiatric: denies: Suicidal, Homicidal PD PAST MEDICAL HISTORY - Past Medical History Cardiovascular: None Respiratory: None Neuro: None Endocrine/Autoimmune: None GI: None : None HEENT: None Psych: Anxiety, Panic attacks, Post traumatic stress disorder Musculoskeletal: None, Other Derm: None - Past Surgical History Past Surgical History: Yes HEENT: Tonsil/Adenoidectomy - Present Medications Home Medications: Ambulatory Orders Medication Instructions Recorded Confirmed clonazePAM [Clonazepam] 0.5 mg PO BID #60 tablet 04/29/18 Cyclobenzaprine [Flexeril] 10 mg PO PRN PRN 05/18/18 05/18/18 Cyclobenzaprine [Flexeril] 10 mg PO TID PRN #20 tablet 05/18/18 - Allergies Allergies/Adverse Reactions: Allergies Allergy/AdvReac Type Severity Reaction Status Date / Time sulfamethoxazole Allergy Intermediate Dizziness Verified 04/29/18 10:09 [From Bactrim] trimethoprim [From Bactrim] Allergy Intermediate Dizziness Verified 04/29/18 10:09 ibuprofen Allergy Unknown Unknown Verified 04/29/18 10:09 Antifungal - Imidazole Allergy Unknown Verified 04/29/18 10:09 divalproex sodium Allergy Unknown Verified 04/29/18 10:09 [From Depakote] gabapentin [From Neurontin] Allergy Unknown Verified 04/29/18 10:09 hydrocodone Allergy Unknown Verified 04/29/18 10:09 oseltamivir [From Tamiflu] Allergy Unknown Verified 04/29/18 10:09 oxycodone Allergy Unknown Verified 04/29/18 10:09 Penicillins Allergy Unknown Verified 04/29/18 10:09 pheniramine Allergy Unknown Verified 01/02/18 16:37 [From Theraflu Cold-Sore Throat (PE)] phenylephrine Allergy Unknown Verified 01/02/18 16:37 [From Theraflu Cold-Sore Throat (PE)] anelgesics Allergy Anxiety Uncoded 01/02/18 16:37 - Social History Does the pt smoke?: No Smoking Status: Never smoker Does the pt drink ETOH?: No Does the pt have substance abuse?: Yes - Immunizations Immunizations are current?: Yes - POLST Patient has POLST: No PD ED PE NORMAL - General General: Alert and oriented X 3, No acute distress - HEENT HEENT: Atraumatic, PERRL - Derm Derm: Normal color - Extremities Extremities: No deformity - Neuro Neuro: Alert and oriented X 3, Normal speech - Psych Psych: Normal mood Results - Vitals Vitals: Vital Signs - 24 hr 05/18/18 19:18 Temperature 36.5 C Heart Rate 83 Respiratory 16 Rate Blood Pressure 129/85 H O2 Saturation 98 Oxygen O2 Source Room air PD MEDICAL DECISION MAKING - ED course ED course: I explained to the patient that we do not refill controlled substances out of the emergency department. I recommended that the patient follow-up with his primary care tomorrow for a refill. I did agree to give 1 dose of a benzodiazepine in the emergency department to help with his symptoms. The patient will return to the emergency department for any worsening or any concerns Departure - Departure Disposition: 01 Home, Self Care Clinical Impression: Medication refill Condition: Good Follow-Up: [facility] [Provider Group] - Tomorrow Prescriptions: Cyclobenzaprine [Flexeril] 10 mg PO TID PRN #20 tablet PRN Reason: Spasms Comments: Please return to the emergency department for worsening symptoms or any concerns Discharge Date/Time: 05/18/18 22:15
== END 2018-05-18 22:15 | disposition home or self-care (01) ==
LOC: ED 19:02
DX: Z76.0 Encounter for issue of repeat prescription (principal)
CPT/HCPCS: 99281; 99283; A9270

== ENCOUNTER 2018-05-21 19:12 | Outpatient (CLI) | payer MEDICAID | END 2018-05-21 19:13 | disposition critical access hospital (66) | LOC: EMS 19:12 | PROVIDERS: ATTEND Surgery | DX: R00.2 Palpitations (principal); R25.1 Tremor, unspecified; Z91.138 Patient's unintentional underdosing of medication regimen for other reason | CPT/HCPCS: A0425; A0429; A0999 ==

== ENCOUNTER 2018-05-21 19:42 | Emergency (ER) | payer MEDICAID ==
[2018-05-21] MEDS ORDERED: clonazePAM 0.5 MG TABLET PO STA (20:06)
--- NOTE | 2018-05-21 20:11 | ED Physician Documentation ---
PD HPI MHE - Stated complaint Stated Complaint: ANXIETY - Chief complaint Chief Complaint: MHE - History obtained from History obtained from: Patient - History of Present Illness Primary symptom: Anxiety (37-year-old gentleman with chronic anxiety. He recently signed up with a new primary care physician who reportedly will not prescribe him his chronic clonazepam. He is having a panic attack. He denies suicidal or homicidal ideation.) Review of Systems Constitutional: denies: Fever, Chills GI: denies: Abdominal Pain, Nausea, Vomiting, Diarrhea : reports: Reviewed and negative PD PAST MEDICAL HISTORY - Past Medical History Cardiovascular: None Respiratory: None Neuro: None Endocrine/Autoimmune: None GI: None : None HEENT: None Psych: Anxiety, Panic attacks, Post traumatic stress disorder Musculoskeletal: None, Other Derm: None - Past Surgical History Past Surgical History: Yes HEENT: Tonsil/Adenoidectomy - Present Medications Home Medications: Ambulatory Orders Medication Instructions Recorded Confirmed clonazePAM [Clonazepam] 0.5 mg PO BID #60 tablet 04/29/18 Cyclobenzaprine [Flexeril] 10 mg PO TID PRN #20 tablet 05/18/18 clonazePAM [Clonazepam] 0.5 mg PO BID #8 tablet 05/21/18 diazePAM [Valium] 1 mg PO DAILY 05/21/18 05/21/18 - Allergies Allergies/Adverse Reactions: Allergies Allergy/AdvReac Type Severity Reaction Status Date / Time sulfamethoxazole Allergy Intermediate Dizziness Verified 05/21/18 19:48 [From Bactrim] trimethoprim [From Bactrim] Allergy Intermediate Dizziness Verified 05/21/18 19:48 ibuprofen Allergy Unknown Unknown Verified 05/21/18 19:48 Antifungal - Imidazole Allergy Unknown Verified 05/21/18 19:48 divalproex sodium Allergy Unknown Verified 05/21/18 19:48 [From Depakote] gabapentin [From Neurontin] Allergy Unknown Verified 05/21/18 19:48 hydrocodone Allergy Unknown Verified 05/21/18 19:48 oseltamivir [From Tamiflu] Allergy Unknown Verified 05/21/18 19:48 oxycodone Allergy Unknown Verified 05/21/18 19:48 Penicillins Allergy Unknown Verified 05/21/18 19:48 pheniramine Allergy Unknown Verified 05/21/18 19:48 [From Theraflu Cold-Sore Throat (PE)] phenylephrine Allergy Unknown Verified 05/21/18 19:48 [From Theraflu Cold-Sore Throat (PE)] anelgesics Allergy Anxiety Uncoded 05/21/18 19:48 - Social History Does the pt smoke?: No Smoking Status: Never smoker Does the pt drink ETOH?: No Does the pt have substance abuse?: Yes - Immunizations Immunizations are current?: Yes - POLST Patient has POLST: No PD ED PE NORMAL - Vitals Vital signs reviewed: Yes - General General: Alert and oriented X 3, Other (Visibly anxious) - Neuro Neuro: Alert and oriented X 3, Normal speech - Psych Psych: Normal mood Results - Vitals Vitals: Vital Signs - 24 hr 05/21/18 19:43 Temperature 37.6 C H Heart Rate 93 Respiratory 16 Rate Blood Pressure 136/91 H O2 Saturation 99 Oxygen O2 Source Room air PD MEDICAL DECISION MAKING - ED course ED course: This is a 37-year-old gentleman with chronic anxiety out of his medications, he is trying to set up with psychiatry but has had some road blocks. Departure - Departure Disposition: 01 Home, Self Care Clinical Impression: Medication refill, Anxiety Condition: Good Record reviewed to determine appropriate education?: Yes Instructions: ED Panic Attack Prescriptions: clonazePAM [Clonazepam] 0.5 mg PO BID #8 tablet Comments: Follow-up with [facility] at [phone] to schedule psychiatric care and counseling.
[2018-05-21 20:29] VITALS: BP 121/81
--- NOTE | 2018-05-22 11:24 | ED Physician Documentation ---
ED Addendum - Addendum Addendum: 05/22/18 11:23 Took call from pharmacy. He had filled a prescription for 60 clonazepam for BID dosing on April 29 and as such I requested they not fill the prescription I gave.
== END 2018-05-21 20:28 | disposition home or self-care (01) ==
LOC: EDUNIT# → ED 19:42
DX: F41.9 Anxiety disorder, unspecified (principal)
CPT/HCPCS: 99281; 99283; A9270

== ENCOUNTER 2018-05-22 19:57 | Emergency (ER) | payer MEDICAID ==
[2018-05-22] MEDS ORDERED: clonazePAM 0.5 MG TABLET PO STA (21:39)
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
[2018-05-22 21:51] VITALS: BP 134/81
== END 2018-05-22 21:52 | disposition home or self-care (01) ==
LOC: ED 19:57
DX: F41.9 Anxiety disorder, unspecified (principal)
CPT/HCPCS: 99283; A9270

== ENCOUNTER 2018-06-25 16:15 | Emergency (ER) | payer MEDICAID ==
--- NOTE | 2018-06-25 16:25 | ED Physician Documentation ---
PD HPI SKIN - Stated complaint Stated Complaint: POSS BUG BITE/ITCHY - History obtained from History obtained from: Patient - History of Present Illness Timing - onset: Today (He noticed an itchy lesion on the right upper chest wall earlier today without clear trigger.) Review of Systems Constitutional: reports: Reviewed and negative Throat: reports: Reviewed and negative Cardiac: reports: Reviewed and negative PD PAST MEDICAL HISTORY - Past Medical History Cardiovascular: None Respiratory: None Neuro: None Endocrine/Autoimmune: None GI: None : None HEENT: None Psych: Anxiety, Panic attacks, Post traumatic stress disorder Musculoskeletal: None, Other Derm: None - Past Surgical History Past Surgical History: Yes HEENT: Tonsil/Adenoidectomy - Present Medications Home Medications: Ambulatory Orders Medication Instructions Recorded Confirmed clonazePAM [Clonazepam] 0.5 mg PO BID #60 tablet 04/29/18 Cyclobenzaprine [Flexeril] 10 mg PO TID PRN #20 tablet 05/18/18 clonazePAM [Clonazepam] 0.5 mg PO BID #8 tablet 05/21/18 diazePAM [Valium] 1 mg PO DAILY 05/21/18 05/21/18 Triamcinolone 0.1% Oint [Kenalog 1 gm TOP BID #2 tube 06/25/18 0.1% Oint] - Allergies Allergies/Adverse Reactions: Allergies Allergy/AdvReac Type Severity Reaction Status Date / Time sulfamethoxazole Allergy Intermediate Dizziness Verified 05/22/18 20:14 [From Bactrim] trimethoprim [From Bactrim] Allergy Intermediate Dizziness Verified 05/22/18 20:14 ibuprofen Allergy Unknown Unknown Verified 05/22/18 20:14 Antifungal - Imidazole Allergy Unknown Verified 05/22/18 20:14 divalproex sodium Allergy Unknown Verified 05/22/18 20:14 [From Depakote] gabapentin [From Neurontin] Allergy Unknown Verified 05/22/18 20:14 hydrocodone Allergy Unknown Verified 05/22/18 20:14 oseltamivir [From Tamiflu] Allergy Unknown Verified 05/22/18 20:14 oxycodone Allergy Unknown Verified 05/22/18 20:14 Penicillins Allergy Unknown Verified 05/22/18 20:14 pheniramine Allergy Unknown Verified 05/21/18 19:48 [From Theraflu Cold-Sore Throat (PE)] phenylephrine Allergy Unknown Verified 05/21/18 19:48 [From Theraflu Cold-Sore Throat (PE)] anelgesics Allergy Anxiety Uncoded 05/21/18 19:48 - Social History Does the pt smoke?: No Smoking Status: Never smoker Does the pt drink ETOH?: No Does the pt have substance abuse?: Yes - Immunizations Immunizations are current?: Yes - POLST Patient has POLST: No PD ED PE NORMAL - Vitals Vital signs reviewed: Yes - General General: Alert and oriented X 3, No acute distress - Derm Derm: Other (Over the clavicle on the right there is a bullous lesion that is small consistent with a focal area of contact dermatitis.) - Neuro Neuro: Alert and oriented X 3, Normal speech Results - Vitals Vitals: Oxygen O2 Source Room air Departure - Departure Disposition: 01 Home, Self Care Clinical Impression: Contact dermatitis Qualifiers: Contact dermatitis type: unspecified Contact dermatitis trigger: unspecified trigger Qualified Code(s): L25.9 - Unspecified contact dermatitis, unspecified cause Condition: Good Record reviewed to determine appropriate education?: Yes Instructions: ED Dermatitis Contact Prescriptions: Triamcinolone 0.1% Oint [Kenalog 0.1% Oint] 1 gm TOP BID #2 tube Comments: Call your doctor to arrange a follow-up appointment, make the next available appointment. In the interim, return anytime if worse or if new symptoms develop.
[2018-06-25 16:26] VITALS: BP 124/73
== END 2018-06-25 16:27 | disposition home or self-care (01) ==
LOC: ED 16:15
DX: L25.9 Unspecified contact dermatitis, unspecified cause (principal)
CPT/HCPCS: 99282; 99283

== ENCOUNTER 2018-07-14 03:23 | Outpatient (CLI) | payer MEDICAID | END 2018-07-14 03:24 | disposition critical access hospital (66) | LOC: EMS 03:23 | PROVIDERS: ATTEND Surgery | DX: R68.84 Jaw pain (principal); R20.2 Paresthesia of skin; R52 Pain, unspecified; F41.9 Anxiety disorder, unspecified ==

== ENCOUNTER 2018-07-14 03:50 | Emergency (ER) | payer MEDICAID ==
--- NOTE | 2018-07-14 03:56 | ED Physician Documentation ---
PD HPI CHEST PAIN - Stated complaint Stated Complaint: JAW PAIN - Chief complaint Chief Complaint: MHE - History obtained from History obtained from: Patient, EMS - History of Present Illness Timing - onset: How many hours ago (2), Today Timing - onset during: Sleep Timing - duration: Hours (2) Timing - details: Abrupt onset (He states he awoke from sleep with a feeling of pain in the right side of the neck and jaw and also a feeling of some numbness in the left shoulder and arm. He did not have chest pain per se but did feel slight heaviness. He denied any headache. He states the symptoms decreased after sitting up and being up for a little bit but he continue with the numbness in the left arm and called EMS. He states he has a history of anxiety and has been under more stress lately. He is concerned however he is having "a stroke" but not necessarily worried about a heart attack.) Quality: Tightness, Aching Location: Substernal Radiation: Neck, Left upper extremity Improved by: No: Rest Worsened by: No: Inspiration, Position Associated symptoms: General Weakness. No: Shortness of air, Nausea, Feeling faint / dizzy, Palpitations, Cough Similar symptoms before: Has not had sx before Review of Systems Constitutional: denies: Fever, Chills Nose: denies: Rhinorrhea / runny nose, Congestion Throat: denies: Sore throat Cardiac: reports: Chest pain / pressure. denies: Palpitations, Pedal edema, Calf pain Respiratory: reports: Dyspnea. denies: Cough, Wheezing GI: denies: Abdominal Pain, Nausea, Vomiting Skin: denies: Rash, Lesions Musculoskeletal: reports: Neck pain (right side just tonight). denies: Back pain Neurologic: reports: Numbness (left shoulder and forearm, down to left scott mb/index finger.). denies: Focal weakness, Near syncope Psychiatric: reports: Anxiety. denies: Insomnia PD PAST MEDICAL HISTORY - Past Medical History Cardiovascular: None Respiratory: None Neuro: None Endocrine/Autoimmune: None GI: None : None HEENT: None Psych: Anxiety, Panic attacks, Post traumatic stress disorder Musculoskeletal: None, Other Derm: None - Past Surgical History Past Surgical History: Yes HEENT: Tonsil/Adenoidectomy - Present Medications Home Medications: Ambulatory Orders Medication Instructions Recorded Confirmed clonazePAM [Clonazepam] 0.5 mg PO BID #60 tablet 04/29/18 Cyclobenzaprine [Flexeril] 10 mg PO TID PRN #20 tablet 05/18/18 clonazePAM [Clonazepam] 0.5 mg PO BID #8 tablet 05/21/18 diazePAM [Valium] 1 mg PO DAILY 05/21/18 05/21/18 Triamcinolone 0.1% Oint [Kenalog 1 gm TOP BID #2 tube 06/25/18 0.1% Oint] - Allergies Allergies/Adverse Reactions: Allergies Allergy/AdvReac Type Severity Reaction Status Date / Time sulfamethoxazole Allergy Intermediate Dizziness Verified 06/25/18 16:26 [From Bactrim] trimethoprim [From Bactrim] Allergy Intermediate Dizziness Verified 06/25/18 16:26 ibuprofen Allergy Unknown Unknown Verified 06/25/18 16:26 Antifungal - Imidazole Allergy Unknown Verified 06/25/18 16:26 divalproex sodium Allergy Unknown Verified 06/25/18 16:26 [From Depakote] gabapentin [From Neurontin] Allergy Unknown Verified 06/25/18 16:26 hydrocodone Allergy Unknown Verified 06/25/18 16:26 oseltamivir [From Tamiflu] Allergy Unknown Verified 06/25/18 16:26 oxycodone Allergy Unknown Verified 06/25/18 16:26 Penicillins Allergy Unknown Verified 06/25/18 16:26 pheniramine Allergy Unknown Verified 06/25/18 16:26 [From Theraflu Cold-Sore Throat (PE)] phenylephrine Allergy Unknown Verified 06/25/18 16:26 [From Theraflu Cold-Sore Throat (PE)] anelgesics Allergy Anxiety Uncoded 06/25/18 16:26 - Social History Does the pt smoke?: No Smoking Status: Never smoker Does the pt drink ETOH?: No Does the pt have substance abuse?: Yes - Immunizations Immunizations are current?: Yes - POLST Patient has POLST: No PD ED PE NORMAL - Vitals Vital signs reviewed: Yes - General General: Alert and oriented X 3, No acute distress (but seems anxious), Well developed/nourished - HEENT HEENT: Pharynx benign - Neck Neck: Supple, no meningeal sign, No adenopathy - Cardiac Cardiac: RRR, No murmur - Respiratory Respiratory: Clear bilaterally, Other (no chestwall tenderness) - Abdomen Abdomen: Soft, Non tender - Derm Derm: Normal color, Warm and dry - Extremities Extremities: No tenderness to palpate, Normal ROM s pain, No edema, No calf tenderness / cord - Neuro Neuro: Alert and oriented X 3, No motor deficit, Normal speech Eye Opening: Spontaneous Motor: Obeys Commands Verbal: Oriented GCS Score: 15 Results - Vitals Vitals: Vital Signs - 24 hr 07/14/18 07/14/18 07/14/18 03:51 03:55 04:02 Temperature 36.8 C Heart Rate 73 73 66 Respiratory 16 16 14 Rate Blood Pressure 144/93 H 144/93 H O2 Saturation 99 98 98 07/14/18 05:02 Temperature 36.9 C Heart Rate 65 Respiratory 21 Rate Blood Pressure 109/81 H O2 Saturation 96 Oxygen O2 Source Room air - Labs Labs: Laboratory Tests 07/14/18 07/14/18 07/14/18 04:10 04:10 04:10 WBC 7.7 RBC 5.07 Hgb 14.5 Hct 43.9 MCV 86.5 MCH 28.6 MCHC 33.0 RDW 14.3 Plt Count 291 MPV 6.9 L Neut # (Auto) 4.4 Lymph # (Auto) 2.3 Blair # (Auto) 0.7 Eos # (Auto) 0.2 Baso # (Auto) 0.1 Absolute Nucleated RBC 0.00 Nucleated RBC % 0.0 Sodium 138 Potassium 3.9 Chloride 107 Carbon Dioxide 22 Anion Gap 9.0 BUN 21 H Creatinine 0.8 Estimated GFR (MDRD) 110 Glucose 103 H Calcium 9.5 Total Bilirubin < 0.2 L AST 19 ALT 21 Alkaline Phosphatase 49 Troponin I < 0.04 Total Protein 7.2 Albumin 4.3 Globulin 2.9 Albumin/Globulin Ratio 1.5 Lipase 34 Departure - Departure Disposition: 01 Home, Self Care Clinical Impression: Neck pain on right side, Left arm numbness Condition: Stable Record reviewed to determine appropriate education?: Yes Instructions: ED Neck Pain No Trauma Comments: Your EKG and blood tests are normal without any signs of heart injury going on. Your vital signs are good as well. There are no signs of serious cause for your symptoms. It may be musculoskeletal. Sometimes stress will give you the symptoms. Again no signs of serious cause at this time but return if you have increased or change symptoms or other concerns. Discharge Date/Time: 07/14/18 05:07
[2018-07-14] MEDS ORDERED: ACETAMINOPHEN 325 MG TABLET PO STA (03:57)
[2018-07-14 04:18] LABS: BASOPHILS # (AUTO) 0.1 10^3/uL (0.0-0.1); EOSINOPHILS # (AUTO) 0.2 10^3/uL (0.0-0.7); EOSINOPHILS % (AUTO) 2.7 %; HGB - HEMOGLOBIN 14.5 g/dL (14.0-18.0); LYMPHOCYTES # (AUTO) 2.3 10^3/uL (1.5-3.5); LYMPHOCYTES % (AUTO) 30.2 %; MEAN CORPUSCULAR HEMOGLOBIN 28.6 pg (27.0-31.0); MEAN CORPUSCULAR VOLUME 86.5 fL (80.0-94.0); MEAN PLATELET VOLUME 6.9 fL (7.4-11.4); MONOCYTES # (AUTO) 0.7 10^3/uL (0.0-1.0); MONOCYTES % (AUTO) 9.3 %; NEUTROPHILS # (AUTO) 4.4 10^3/uL (1.5-6.6); NEUTROPHILS % (AUTO) 56.8 %; PLT - PLATELET COUNT 291 10^3/uL (130-450); RED BLOOD COUNT 5.07 10^6/uL (4.70-6.10); RED CELL DISTRIBUTION WIDTH 14.3 % (12.0-15.0); WHITE BLOOD COUNT 7.7 x10^3/uL (4.8-10.8)
[2018-07-14 04:30] LABS: ALBUMIN 4.3 g/dL (3.2-5.5); ALBUMIN/GLOBULIN RATIO 1.5 (1.0-2.2); ALKALINE PHOSPHATASE 49 IU/L (42-121); ALT ALANINE AMINOTRANSFERASE 21 IU/L (10-60); AST ASPARTATE AMINOTRANSFERASE 19 IU/L (10-42); BILIRUBIN,TOTAL < 0.2 mg/dL (0.2-1.0); BUN - BLOOD UREA NITROGEN 21 mg/dL (6-20); CALCIUM 9.5 mg/dL (8.5-10.3); CARBON DIOXIDE - CO2 22 mmol/L (21-32); CHLORIDE 107 mmol/L (101-111); CREATININE 0.8 mg/dL (0.6-1.2); GFR - MDRD 110 (>89); GLUCOSE 103 mg/dL (70-100); LIPASE 34 U/L (22-51); SODIUM 138 mmol/L (135-145); TOTAL PROTEIN 7.2 g/dL (6.7-8.2)
[2018-07-14] MEDS ORDERED: LORazepam 1 MG TABLET PO STA (04:54)
[2018-07-14 05:03] VITALS: BP 109/81
== END 2018-07-14 05:07 | disposition home or self-care (01) ==
LOC: EDUNIT# → ED 03:50
DX: M54.2 Cervicalgia (principal); R20.0 Anesthesia of skin; R07.89 Other chest pain; F41.9 Anxiety disorder, unspecified
CPT/HCPCS: 36415; 80053; 83690; 84484; 85025; 93005; 99283; 99284

== ENCOUNTER 2018-10-13 13:27 | Outpatient (CLI) | payer MEDICAID | END 2018-10-13 13:28 | disposition EMS.NT | LOC: EMS 13:27 | PROVIDERS: ATTEND Surgery | DX: F41.9 Anxiety disorder, unspecified (principal); R11.0 Nausea; R42 Dizziness and giddiness ==